=== PATIENT | male | born 1950 | race Caucasian/White ===

== ENCOUNTER → 2017-04-30 10:33 | Outpatient (CLI) | payer MEDICARE, SELFPAY ==
[2017-04-30 12:46] LABS: AST(SGOT) 20 U/L (15-37); Alanine Aminotransfer ALT/SGPT 33 U/L (16-61); Albumin, Serum 3.4 g/dL (3.2-5.0); Alkaline Phosphatase 154 U/L (45-117); Anion Gap 9 (5-15); BUN 34 mg/dL (7-18); BUN/Creat Ratio 23.8 RATIO (10-20); Bilirubin, Direct 0.15 mg/dL (0.00-0.30); Calcium,Total 9.2 mg/dL (8.5-10.1); Chloride 99 mmol/L (98-107); Cholesterol 171 mg/dL (200); Creatinine, Serum 1.43 mg/dL (0.70-1.30); EST Glomerular Filtration Rate 53 mL/min (>60); Est Glom Filt Rate - Afr Amer 64 mL/min (>60); Globulin 4.6 g/dL (2.2-4.2); Glucose 166 mg/dL (74-106); High Density Lipoprotein 31 mg/dL; Potassium 3.3 mmol/L (3.5-5.1); Sodium Level 136 mmol/L (136-145); Triglycerides 130 mg/dL; Very Low Density Lipoprotein 26 mg/dL (5-40)
[2017-04-30 13:09] LABS: Microalbumin,Random Urine 13.3 mg/L (NO RANGE EST.); Microalbumin:Creatinine Ratio 27.8 mg/g CRE (<30 mg/g CRE)
== END ==
PROVIDERS: Family Provider Family Medicine; PCP Family Medicine; Visit Provider Family Medicine
DX: E11.9 Type 2 diabetes mellitus without complications (principal)
CPT/HCPCS: 36415; 80048; 80061; 80076; 82043; 82570

== ENCOUNTER 2017-05-10 11:09 | Day surgery (SDC) | payer MEDICARE, SELFPAY ==
--- NOTE | 2017-05-10 | IMM_PTH ---
PATIENT: ASHLEY FONSECA LOC: [facility] U#:[id number] AGE/SX: 66/M ROOM: RE05/10/[address]: Dr. Erick Olson MD : 1950 BED: DIS: 05/10/2017 SPEC #: [id number] RECD: 05/11/17 11:00 STATUS: KADY REKaylan #: [id number] REBEKAH: 05/10/17 00:[address]: Erick Olson DEPT: IMMUNOHISTOCHEMISTRY RECD BY: Verónica Wiggins ENTERED: 05/11/17 11:00 SP TYPE: IMMUNO OTHR DR: Dr. Jelena Huddleston MD Tissues: A - Stomach, NOS Procedures: H Pylori (initial) PHYSICIAN & INSTITUTION [place] [address] SPECIMEN INFORMATION: Tissue Source: A ? Gastric biopsy Clinical Info: Dysphagia Specimen Number: [id number] CPT code: 74382 METHODOLOGY: Deparaffinized sections of prefer/formalin-fixed tissue or PAP/DQ stained slides are incubated with monoclonal/polyclonal antibodies/oligonucleotide probes. Localization is made via biotin free immunoperoxidase method. Appropriate controls are performed and reacted as expected. Results on target cell population are indicated in the following table: RESULTS: ANTIBODY / CLONE RESULT Block A H Pylori (polyclonal) negative These tests were developed and their performance characteristics determined by [facility]. They may not have been cleared or approved by the U.S. Food and Drug Administration. The FDA has determined that such clearance or approval is not necessary. INTERPRETATION: A. Gastric biopsy: Negative for Helicobacter pylori organisms. AM:kza 05/14/17
--- NOTE | 2017-05-10 | EGD_PTH ---
PATIENT: ASHLEY FONSECA LOC: EN U#:[id number] AGE/SX: 66/M ROOM: RE05/10/[address]: Dr. Erick Olson MD : 1950 BED: DIS: 05/10/2017 SPEC #: [id number] RECD: 05/10/17 15:02 STATUS: KADY BRANDON #: [id number] REBEKAH: 05/10/17 00:[address]: Erick Olson DEPT: SURGICAL PATHOLOGY RECD BY: Lemuel Bell ENTERED: 05/10/17 15:03 SP TYPE: EGD BIOPSY ROME DR: Dr. Jelena Huddleston MD Tissues: A - Gastric mucous membrane B - Esophageal mucous membrane Procedures: Surgery Specimen Level IV HEADER OPERATION: EGD PRE-OP DIAGNOSIS: Dysphagia TISSUE SUBMITTED: A ? Gastric biopsy, B ? Distal esophageal biopsy MICROSCOPIC DIAGNOSIS A. Gastric antrum, biopsy: Gastritis. B. Distal esophagus, biopsy: Rare strips of benign superficial squamous mucosa. AM:kaz 05/11/17 COMMENT A. The results of immunohistochemistry for Helicobacter pylori will be reported separately ([id number]). MICROSCOPIC DESCRIPTION Slides are reviewed. A. Sections show small collections and groups of plasma cells in the mucosa. Active inflammation is not present. These findings are consistent with mild to moderate chronic gastritis. GROSS DESCRIPTION A - Received in fixative is one container labeled with the patient's name and designated gastric biopsy. The specimen consists of one irregular fragment of light andrade soft tissue that measures 0.5 x 0.3 x 0.1 cm. The specimen is totally submitted in one cassette. B - Received in fixative is one container labeled with the patient's name and designated distal esophageal biopsy. The specimen consists of one irregular fragment of mucoid, light andrade soft tissue that measures 0.1 x 0.1 x 0.1 cm. The specimen is totally submitted in one cassette. / SJ:kaz 05/10/17 TC:3 CPT: 00019 x2
--- NOTE | 2017-05-10 08:22 | HP.PCM_ITS ---
History and Physical Date of Admission: 05/10/17 HISTORY AND PHYSICAL ? Josh Waterman 1950 ? REFERRING PHYSICIAN: ~~Erick Olson MD ? CHIEF COMPLAINT: ~~Follow Up ? HPI: The patient is a 66 year old male referred for endoscopy. ~Josh notes worsening dysphagia. ~Food will occasionally stick with swallowing. ? Josh is a patient I am following for anemia and suspected upper GI bleed, was recently admitted to [facility] where he was transfused. ~I performed upper endoscopy on 11/29/16, lower endoscopy was not performed at that time due to current medical status. ~The patient was found to have gastritis, esophagitis, and what appeared to be a healing gastric ulcer. ~Pathology demonstrated: gastritis and Wong's esophagus without dysplasia. ~Testing for H. Pylori was negative. ? ? ? PAST MEDICAL HISTORY PAST MEDICAL HISTORY Diagnosis Date ? Bilateral venous insufficiency 02/16/2014 ? CAD (coronary artery disease) 12/25/2013 ? Dr. Hopkins, Cardiology ? CHF (congestive heart failure) ([facility]) 12/25/2013 ? CKD (chronic kidney disease) stage 3, GFR 30-59 ml/min 12/25/2013 ? Dr. Chayito Woody, [facility] ? Dermatophytosis of nail 08/04/2011 ? DM neuro manif type II 08/04/2011 ? DM type 2 (diabetes mellitus, type 2) ([facility]) ? ? HTN (hypertension) ? ? Hyperlipidemia ? ? LV dysfunction 02/16/2014 ? AL (myocardial infarction) ([facility]) ? ? MRSA infection (methicillin-resistant Staphylococcus aureus) 08/12/2014 ? Neuropathy ([facility]) ? ? LAURA on CPAP ? ? Other acquired deformity of toe 08/04/2011 ? Other lymphedema 01/07/2014 ? Retinopathy ? ? S/P CABG x 2 ? ? Ulcer of lower limb, unspecified 01/07/2014 ? ? PAST SURGICAL HISTORY PAST SURGICAL HISTORY Procedure Laterality Date ? CABG (2) VEIN GRAFTS & ARTERIAL GRAFT(S ? 03/31/2011 ? COLONOSCOP W/ OR W/O [facility] SPEC ? 02/28/2013 ? Colonoscopy ? CORONARY STENT EA VESSEL ? ? EGD W/O [facility] SPECIMEN W/BX ? 11/29/2016 ? post GI bleed - gastritis, likely healing ulcer ? ? CURRENT MEDICATIONS ? Current Outpatient Prescriptions: carvedilol (COREG) 3.125 mg tablet Take 3.125 mg by mouth twice daily. clindamycin (CLEOCIN) 150 mg capsule Take two capsules to start, then take one capsule four times a day. isosorbide mononitrate ER (IMDUR) 30 mg 24 hr tablet Take 1 tablet by mouth once daily. metoprolol tartrate, short acting, (LOPRESSOR) 50 mg tablet Take 1 tablet by mouth twice daily. mupirocin (BACTROBAN) 2 % ointment Apply 1 application to affected area three times daily. Location: right thigh HYDROcodone-acetaminophen (NORCO) 5-325 mg per tablet Take 1 tablet by mouth every 6 hours as needed for Pain. Insulin Lispro, Human, (HUMALOG KWIKPEN) 100 unit/mL inpn Take 5 units with breakfast and 5 units with lunch. ~Take 32 units with dinner. ~Add sliding scale insulin 3 times daily with meals. insulin glargine (LANTUS SOLOSTAR) 100 unit/mL (3 mL) inpn SEVENTY (70) UNITS TWICE A DAY. Insulin Lispro, Human, (HUMALOG KWIKPEN) 100 unit/mL inpn Add sliding scale insulin 3 times a day with meals: ~150-200 add 1 [id number] add 2 -353 add 3 -488 add 4 [id number] add 5 -418 add 6 units nitroglycerin sublingual (NITROSTAT) 0.4 mg SL tablet Dissolve 1 tablet under the tongue every 5 minutes as needed. gabapentin (NEURONTIN) 600 mg tablet Take 1 tablet by mouth four times daily. potassium chloride (K-TAB) 10 mEq tablet Take 2 tablets by mouth twice daily. 1 tab po lancets (TRUEPLUS LANCETS) 33 gauge misc Use 4 times daily to check blood sugars Dx: E11.49 Insulin: yes COMPOUNDED PRESCRIPTION Oxygen at 2 L per nasal cannula. Hypoxia, ~Combined heart failure, Chronic pulmonary heart disease torsemide (DEMADEX) 100 mg tablet Take 1 tablet by mouth once daily. cholecalciferol (VITAMIN D3) 1,000 unit tab Take 1 tablet by mouth once daily. multivitamin tablet Take 1 tablet by mouth once daily. magnesium oxide 400 mg cap Take 1 capsule by mouth twice daily. spironolactone (ALDACTONE) 25 mg tablet Take 1 tablet by mouth once daily. DULoxetine (CYMBALTA) 60 mg capsule Take 1 capsule by mouth once daily. blood sugar diagnostic (ACCU-CHEK FABIAN) test strip Test 4 times daily. ~DX: 250.02 ~Insulin: Yes Insulin [place], Disposable, (PEN NEEDLE) 31 x 3/16 ndle Use with insulins as directed. ~250.60 DM neuro manif type II. ~Insulin: ~Yes. atorvastatin (LIPITOR) 80 mg tablet Take 1 tablet by mouth once daily. clopidogrel (PLAVIX) 75 mg tablet Take 1 tablet by mouth once daily. Ferrous Sulfate 325 mg (65 mg iron) tablet Take 1 tablet by mouth twice daily with meals. aspirin, enteric coated (ADULT LOW DOSE ASPIRIN) 81 mg EC tablet Take 81 mg by mouth once daily. docusate sodium (STOOL SOFTENER) 100 mg capsule Take 100 mg by mouth twice daily. ? No current facility-administered medications for this visit. ? ALLERGIES: Lisinopril ? PERSONAL HISTORY: SOCIAL HISTORY Social History ~~Marital status: ~~~~~~~~~~~~Spouse name: ~~~~~~~~~~~~~~~~~~ ~~Years of education: ~~~~~~~~~~~~~~~~Number of children: 5 ~~~~~~~~ ? 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 Social History Main Topics ~~Smoking status: Former Smoker ~~~~~~~~~~~~~~~~~~~~~~~~~~~~~~~~~~~~~~~~~~~~~~~~ ~~~~~~~~ ~~~~~Packs/day: 0.50 ~~~~~Years: 15.00 ~~ ~~~~~Start date: 05/25/1969 ~~~~~Quit date: 03/26/1984 ~~Smokeless status: Never Used ~~~~~~~~~~~~~~~~~~~ ~~Alcohol use: No ~~~~~~~~~ ~~Drug use: No ~~~~~~~~~ ~~Sexual activity: Yes ~~~~~~~~~~~~~~Partners with: Female ? ? FAMILY HISTORY: FAMILY HISTORY FAMILY HISTORY Problem Relation Age of Onset ? Diabetes Mother ? ? Diabetes Father ? ? Hypertension Father ? ? Stroke Father ? ? Stroke Mother ? ? Diabetes Brother ? ? GI Brother ? ? ? alcoholic cirrhosis ? ? ? There are no exam notes on file for this visit. ? ?? PHYSICAL EXAMINATION: ? General: ~The patient is 66 year old male, well nourished, well hydrated in no acute distress. ~The patient is oriented to time, place, and person. ? VITALS: Blood pressure 118/58, pulse 72, weight 105.2 kg (232 lb).~Body mass index is 35.28 kg/(m^2).~ ? HEENT: ~Normal cephalic, ataumatic, pupils are equally round, sclera are anicteric, mucous membranes are moist, oropharynx is clear. ~Neck has no masses , asymmetry or lymphadenopathy. ~Thyroid is unremarkable. ? Respiratory: ~Clear to auscultation and percussion. ~Normal respiratory excursion and pattern. ? Cardiac: ~Examination is regular rate and rhythm. ? Abdominal exam: ~Soft, nontender, ~with no palpable masses. ~No hepatosplenomegaly. ~No palpable hernias. ? Rectal exam: exam deferred ? Extremities: ~no clubbing, cyanosis or edema. ~No adenopathy. ? Other: ? LABORATORY VALUES: As Noted ? RADIOLOGIC STUDIES: ~As Noted ? Assessment ~ IMPRESSION: History of Wong's esophagitis, dysphagia, need to follow-up for peptic ulcer disease ? PLAN: ~I plan to perform upper~endoscopy. ~~We discussed the risks and benefits of the planned endoscopy. ~I have informed the patient that complications can occur including failure to complete the endoscopy and perforation. ~The patient had the opportunity to ask questions concerning the planned endoscopy. ~My staff has also explained the procedure to the patient in understandable terms and has given the patient printed material concerning the procedure. ~The patient freely consents to surgery. ? ? ? ~~~ ? Diagnoses: (K22.70, ~K20.9) Wong's esophagus with esophagitis ~(primary encounter diagnosis) (K29.70) Gastritis, presence of bleeding unspecified, unspecified chronicity, unspecified gastritis type ? A letter was sent to Dr. Jelena Huddleston MD~indicating the above finding for this patient. ?? Return to Clinic: The patient is instructed to follow-up with me after the testing has been completed. ? Erick Olson MD
[2017-05-10 11:24] VITALS: BP 125/69; PULSE 73; RESP 16; TEMP 36.4; O2SAT 98; BMI 35.2
[2017-05-10 11:42] LABS: Bedside Glucose 126 mg/dL (70-110)
[2017-05-10 13:04] VITALS: BP 125/69; BP 90/67; PULSE 77; RESP 16; TEMP 36.8; O2SAT 95
[2017-05-10 13:10] VITALS: BP 125/69; BP 84/70; PULSE 75; RESP 16; O2SAT 91
--- NOTE | 2017-05-10 13:11 | OP.PCM_ITS ---
Report of Operation Date of Procedure: 05/10/17 Pre-Operative Diagnosis: h/o gastric ulcer and Wong's esophagus Post-Operative Diagnosis: gastric nodule, short segement Wong's Surgery/Procedure Performed:: EGD with biopsy Specimen's removed: gastric, distal esophagus Description of Procedure: The patient was brought to the endoscopy suite. Sign in was performed verifying patient, site, planned procedure, critical nursing information, the patient was monitored with cardiac, pulse oximetric, and blood pressure monitoring devices. Monitored anesthetic care was provided for sedation. Following IV sedation and after the oropharynx was sprayed with Cetacaine spray , a video gastroscope was inserted in the oropharynx and advanced down the esophagus without difficulty. The scope was advanced through the stomach, through the pylorus through the duodenum to the proximal jejunum. the jejunum and the duodenum were unremarkable. In the antral region of the stomach, there were no signs of ulceration but there were some nodules present in the antral region. Biopsies were obtained. This area for H. pylori and one of the nodules was biopsied and sent to pathology. The remainder of the stomach and the fundic portion on retroflexion was unremarkable. The distal esophagus again demonstrated irritation felt to be consistent with short segment Wong' s esophagitis. A biopsy was taken. The GE junction. The remainder of the esophagus was unremarkable. The patient tolerated the procedure well and was brought to recovery in stable condition
[2017-05-10 13:15] VITALS: BP 125/69; BP 97/68; PULSE 74; RESP 16; O2SAT 93
[2017-05-10 13:20] VITALS: BP 105/64; BP 125/69; PULSE 74; RESP 16; TEMP 36.8; O2SAT 93
[2017-05-10 13:42] VITALS: BP 125/69
== END 2017-05-10 13:49 | disposition home or self-care (01) ==
LOC: EN 11:11 → AC 11:11
PROVIDERS: Family Provider Family Medicine; PCP Family Medicine; Visit Provider Surgery
PROC: 0DJ08ZZ Inspection of Upper Intestinal Tract, Via Natural or Artificial Opening Endoscopic (ICD-10-PCS; CPT 43235; principal; 2017-05-10 12:45)
DX: K22.70 Barrett's esophagus without dysplasia (principal); K20.9 Esophagitis, unspecified; K29.70 Gastritis, unspecified, without bleeding; D64.9 Anemia, unspecified; Z87.19 Personal history of other diseases of the digestive system; I87.2 Venous insufficiency (chronic) (peripheral); I25.10 Atherosclerotic heart disease of native coronary artery without angina pectoris; I13.0 Hypertensive heart and chronic kidney disease with heart failure and stage 1 through stage 4 chronic kidney disease, or unspecified chronic kidney disease; E11.22 Type 2 diabetes mellitus with diabetic chronic kidney disease; N18.3 Chronic kidney disease, stage 3 (moderate); I50.9 Heart failure, unspecified; I25.2 Old myocardial infarction; E11.40 Type 2 diabetes mellitus with diabetic neuropathy, unspecified; E78.00 Pure hypercholesterolemia, unspecified; G47.33 Obstructive sleep apnea (adult) (pediatric); M20.5X9 Other deformities of toe(s) (acquired), unspecified foot; I89.0 Lymphedema, not elsewhere classified; E11.319 Type 2 diabetes mellitus with unspecified diabetic retinopathy without macular edema; Z87.2 Personal history of diseases of the skin and subcutaneous tissue; F41.9 Anxiety disorder, unspecified; F32.9 Major depressive disorder, single episode, unspecified; K04.7 Periapical abscess without sinus; Z86.14 Personal history of Methicillin resistant Staphylococcus aureus infection; Z95.1 Presence of aortocoronary bypass graft; Z87.891 Personal history of nicotine dependence; Z79.4 Long term (current) use of insulin; Z79.02 Long term (current) use of antithrombotics/antiplatelets; Z79.82 Long term (current) use of aspirin; Z79.899 Other long term (current) drug therapy
CPT/HCPCS: 43239; 82962; 88305; 88342; J7120

== ENCOUNTER → 2017-08-02 12:32 | Outpatient (CLI) | payer MEDICARE, SELFPAY ==
--- NOTE | 2017-08-02 12:41 | PCM.CR.HP2 ---
CR - History & Physical - General Arrival date:: 08/02/17 Arrival time:: 12:41 Date of Referral:: 08/02/17 Date of CR Evaluation:: 08/02/17 Referring Physician: Dr. Patrice Sanders Primary Diagnosis: PCI with KATHY - History of Present Cardiac Event Onset Date: Enter Onset Date of cardiac illnesses in Comment field below Current stable Angina Pectoris:: No Acute Myocardial Infarction within 12 months:: Yes Coronary Artery Bypass Graft:: Yes - 2011 Heart valve replacement or repair:: No PTCA or coronary stenting:: Yes - 2011 and 11/02/16 Heart or Heart-Lung Transplant:: No Heart Failure EF <35%:: No Interventions with present event:: PCI with KATHY Were there any complications?: coded in ED before PCI - Medications Home Medications: Ambulatory Orders Medication Instructions Recorded Atorvastatin Calcium [Lipitor] 80 mg PO QHS 01/15/16 Cholecalciferol (VIT D3) [Vitamin 1,000 unit PO DAILY 01/15/16 D3] Magnesium Oxide 400 mg PO BID 01/15/16 Multivitamins,Therapeutic 1 tab PO DAILY 01/15/16 [Multivitamin] Insulin Glargine,Hum.rec.anlog 55 unit SQ BID 11/02/16 [Lantus] Nitroglycerin [Nitrostat] 0.4 mg SUBLINGUAL Q5M PRN 11/02/16 Aspirin [Aspirin, Baby] 81 mg PO DAILY@0800 tab.chew 11/16/16 Duloxetine Hcl [Cymbalta] 60 mg PO DAILY cap 11/16/16 Acetaminophen [Tylenol] 1,000 mg PO Q8H PRN PRN tab 11/22/16 Carvedilol [Coreg (Beta Matthew)] 3.125 mg PO BID #60 tab 11/22/16 Pantoprazole Sodium [Protonix] 40 mg PO BID #60 tab 11/22/16 Gabapentin [Neurontin] 600 mg PO 4X/DAY 11/26/16 Humalog See Protocol SC 4X/DAY 11/26/16 Clopidogrel Bisulfate [Plavix] 75 mg PO DAILY #30 tab 11/30/16 traZODone [Desyrel] 50 mg PO QHS #30 tab 11/30/16 albuterol sulfate HFA 90 2 puff INHALATION Q4H g 03/01/17 mcg/actuation aerosol inhaler Iron 65 mg PO BID 03/14/17 furosemide 40 mg tablet 40 mg PO BID tab 07/23/17 potassium chloride ER 20 mEq 20 meq PO BID tab 07/23/17 tablet,extended release(part/cryst) - Allergies Allergies/Adverse Reactions: Allergies lisinopril Allergy (Verified 07/23/17 12:50) Other COUGH - Sleep Disorder Evaluation Hx of Sleep Apnea: Yes Do you snore loudly (louder than talking or can be heard through closed doors)?: No Do you often feel tired/ fatigued/ sleepy during daytime?: Yes Has anyone observed you stop breathing during sleep?: No - on Bipap at night History of Hypertension (for STOP score): Yes STOP Results: Positive Advanced Directives - Advanced Directives Power of Environmental Health Officer: No Living Will: No Advance Directives Information Provided: Yes Advance Directives on File: No DNR Order?:: No - MOLST See MOLST form: No Past Medical History - Past Medical Illness Medical History: Past Medical History (Last Reviewed 07/23/17 @ 12:50 by Stephania Mike) Chronic diastolic (congestive) heart failure (Chronic) I50.32 Atherosclerosis of coronary artery of [place] heart without angina pectoris (Chronic) I25.10 FLU-SDG-Hvxa RCA with 3.0 x 16 Promus 11/02/16 CABG x 2 FUENTES-LAD, SVG-OM 2011 Hypoxemia (Acute) R09.02 Abnormal pulmonary function test (Acute) R94.2 ZHAO (dyspnea on exertion) (Chronic) R06.09 Chronic kidney disease (Chronic) N18.9 PAOD (peripheral arterial occlusive disease) (Chronic) I77.9 Venous insufficiency (Chronic) Depression (Chronic) F32.9 Neuropathic pain (Chronic) Obstructive sleep apnea (Chronic) G47.33 Dyspnea (Acute) R06.00 Anemia (Acute) D64.9 Ventricular tachycardia (Acute) I47.2 DM (diabetes mellitus), type 2, uncontrolled (Chronic) E11.65 Bradycardia (Acute) R00.1 Metabolic acidosis (Acute) E87.2 Cardiogenic shock (Acute) R57.0 STEMI (ST elevation myocardial infarction) (Chronic) Cardiac arrest (Acute) I46.9 Hypokalemia (Acute) E87.6 Hyponatremia (Acute) E87.1 LIBRADO (acute kidney injury) (Acute) N17.9 Uncontrolled type 2 DM with hyperosmolar nonketotic hyperglycemia (Acute) E11.00 Diabetes mellitus (Chronic) E11.9 Insulin-dependent Chronic kidney disease, stage 3 (Chronic) Diabetic nephropathy Iron deficiency anemia (Chronic) D50.9 Anemia of chronic disease (Chronic) D63.8 Hyperlipidemia (Chronic) E78.5 Hypertension (Chronic) I10 Open wound of knee, leg, and ankle, complicated (Chronic) S81.009A, S81.809A, S91.009A Lymphedema (Chronic) I89.0 Bilateral Venous insufficiency of both lower extremities (Chronic) I87.2 Arthritis M19.90 Chronic congestive heart failure I50.9 Diabetes E11.9 Hypertension I10 Obstructive sleep apnea G47.33 PAD (peripheral artery disease) I73.9 Acute on chronic systolic (congestive) heart failure (Inactive) I50.23 CHF (congestive heart failure) (Inactive) I50.9 Ejection fraction 45% as of December 2014 PAD (peripheral artery disease) (Inactive) I73.9 - Past Surgical History Surgical History: Past Surgical History (Last Reviewed 07/23/17 @ 12:50 by Stephania Mike) History of coronary artery stent placement (Chronic) Onset Date: ~11/02/16 Z95.5 [id number]-KWA-[id number] RCA with 3.0 x 16 Promus 11/02/16 H/O coronary artery bypass surgery (Chronic) Onset Date: ~2011 Z95.1 CABG x 2 FUENTES-LAD, SVG-OM 2011 Coronary bypass graft mechanical complication T82.218A Surgical History: angioplasty, coronary bypass surgery - x 2., - - CABG x 2 2011, PCI x 2 following. - Family History Summary Family History: Family History (Last Reviewed 07/23/17 @ 12:50 by Stephania Mike) Sister CVA (cerebral vascular accident) Father Heart disease Hypertension Diabetes Social History - Smoking History Smoking Status: Former smoker Hx Smoking Cessation Date: quit 35 years ago Hx Tobacco Use: No Hx Smoking Exposure: No - Alcohol Use Alcohol Usage: No - Substance Abuse Hx Substance Use: No - Occupation Occupation (List type of work in comments):: Retired - Hobbies, Recreation, Social Activities Hobbies: Other - fishing, Follows sports Recreational Activities: I am able to engage in all my recreational activities Social Environment - Status Marital Status: - Current Living Arrangements Living Environment:: Spouse - Children How many children do you have?: 5 Do any of your children live nearby?: Yes - Safety Do you feel safe in your surroundings?: Yes - Assistance Do you need any assistance at home?: no Review of Systems - Review of Systems Hints: Right click = Denies (Slash). Left click = Reports ([place]) Review of Present Symptoms: Reports: Shortness of Breath with Exertion - some SOB with ambulation., PVD, Dizziness/Lightheadedness - occas lightheadedness., Fatigue - occas, Heart Arrhythmia/Irregularities - none now since Nov 09, Appetite - Normal, Appetite - Special Diet, Sleep - Normal. Denies: Shortness of Breath at Rest, Operative Discomfort, Angina, Wound Healing, Sexual Changes - Pain Is Patient Pain Free?: No Pain Location: lower extremity - peripheral extremities Pain Level: 2/10 Previous experience dealing with pain?: took Ibuprofen in past, not now. Takes Acetaminop Risk Factor Assessment - Chief Complaint Chief Complaint: Get self built up. - Vital Signs Respiratory Rate: 20 Pulse Ox: 96 - Pulse Pulse Rate: 73 Pulse Rhythm: Regular - Hypertension How long have you been treated?: many years. On medication(s)?: yes Blood Pressure Sitting - Right Arm: 90/50 - Stress Stress: Recent, Long-standing, Work-related, Home/Family - Diabetes Diabetic History: Type II, Insulin Dependent Nutrition Referral for Diabetes: Yes - Obesity Height: 1.73 m Weight:: 104.326 kg Weight in Pounds: 230.0 lbs Weight Source: Standing Scale Body Mass Index (BMI): 34.9 Desired Body Weight: 212 Realistic Weight Goal (Loss of 1-2 lbs/week): 206 Nutritional Referral for Obesity: Yes - Physical Inactivity Physical Inactivity: Reg Exercise 30 min/day - Risk Stratification Risk Guidelines: Lowest Risk: Risk Factor for Smoking, Moderate Risk: Risk Factor for Dyslipidemia, Risk Factor for Hypertension, Highest Risk: Risk Factor for Diabetes, Risk Factor for Obesity, Risk Factor for Sedentary Lifestyle, Risk Factor for Depression - For Smoking Smoking Risk Guidelines: Smoking Low Risk: None or quit greater than 6 months ago. Smoking Moderate Risk: Smoker or quit 6 months or less ago. Smoking High Risk: Smoker - For Dyslipidemia Dyslipidemia Risk Guidelines: Low Risk: Moderate Risk: High Risk: 15-25% fat 25.1-29% fat >/= 30% fat. <7% sat fat 7-9% sat fat >9% sat fat. <150 mg chol 150-299 mg chol >/= 300 mg chol. LDL <100 LDL 100-129 LDL >/= 130. Chol/HDL ratio <5.0 Chol/HDL ratio 5.0-6.0 Chol/HDL ratio >6.0. Triglycerides <100 Triglycerides 100-149 Triglycerides >/= 150 - For Diabetes Mellitus Diabetes Risk Guidelines: Diabetes Low Risk: HgA1c <6.5% and/or FBG <120. Diabetes Moderate Risk: HgA1c 6.6-7.9% and/or FBG 120-180. Diabetes High Risk: HgA1c >/= 8% and/or FBG >180 - For Obesity/Overweight Obesity/Overweight Risk Guidelines: Obesity Low Risk: BMI <25.0. Obesity Moderate Risk: BMI 25-29.9. Obesity High Risk: BMI >/= 30.0 - For Hypertension Hypertension Risk Guidelines: Hypertension Low Risk: Systolic <120 and Diastolic <80. Hypertension Moderate Risk: Systolic 120-139 and Diastolic 80-89. Hypertension High Risk: Systolic >/= 140 and Diastolic >/= 90 - For Sedentary Lifestyle Sedentary Lifestyle Risk Guidelines: Sedentary Lifestyle Low Risk: >/= 1,500 kcal/week. Sedentary Lifestyle Moderate Risk: 700-1,499 kcal/week. Sedentary Lifestyle High Risk: < 700 kcal/week - For Depression Depression Risk Guidelines: Depression Low Risk: Not clinically depressed. Depression Moderate Risk: Mildly depressed. Depression High Risk: Clinically depressed - Family History Family History: Family History (Last Reviewed 07/23/17 @ 12:50 by Stephania Mike) Sister CVA (cerebral vascular accident) Father Heart disease Hypertension Diabetes Motivation - Motivation to Participate On a scale of 1 to 10, how prepared are you to commit to attending program?: 10 What do you see as barriers to successfully being able to complete the program?: none What do you see as the benefits of succesfully completing the program? In other words, what do you hope to get out of participating in the program?: weight loss and endurance Are there issues you are dealing with that will interfere with completing the program?: no Do you have a spouse or signficant other, family or friends who will help support you to complete the program?: yes
--- NOTE | 2017-08-02 12:49 | PCM.CR.ITP ---
General Information - General Information Admitting Diagnosis: PCI with KATHY - Education/Goals Barriers to Learning: None Individual Counseling: Initial Assessment: Abnormal Cholesterol Levels, Overweight/Obesity, Diabetes, Low HDL <40/Males or <50/Females, Sedentary Lifestyle, Stress, Family History of Heart Disease (under 65 years) Cardiac Rehabilitation Goals: 1. Maintain the individual as the primary focus of care. 2. To improve the patient's quality of life. 3. Identification of cardiac risk factors and provide cardiac risk factor management. 4. Enhance the psychosocial status of the patient. 5. Reconditioning enough to allow the patient to resume customary activities. 6. Control symptoms of cardiac disease Scale for measuring improvement of personal goals: Enter appropriate number in Comments. 2 = Unchanged. 3 = Slightly Better. 4 = Moderate Improvement. 5 = Met my Goal Personal Goals: Initial Assessment: Improve management of stress and emotions, Improve energy level, Participate in home exercise program, Get back to work, or to resume activities faster, Improve knowledge of cardiac disease, Improve muscle strength and endurance, Improve diet and eating habits (eat healthier), Control risk factors (learn risk factor modification) Exercise - Initial Assessment - Visit Date of Eval: 08/02/17 - Stages of Change Stages of Change:: Pre-contemplation, Action - Exercise Prescription Mode:: Treadmill, Biodyne, Rower, Airdyne, NuStep - Intervention Home Exercise/Activity Goal:: Moderate Exercise 30 min/day x 5 days/wk - Education Goals:: Warm-up, RPE DANICA Scale, S/S, Safe Exercise, Self-Monitoring - Exercise Program Goals Exercise Program Goals: Aerobic Activity >30 min Nutrition - Initial Assessment - Program Goals Nutrition Program Goals: LDL <70. Total Cholesterol <200. HDL >45. Triglycerides <150. HgbA1C <7%. BMI <25 - Visit Date of Assessment:: 08/02/17 - Stages of Change Stages of Change:: Pre-contemplation, Action - Diabetes Diabetes:: Yes Insulin: Yes Do you monitor your blood sugar at home?: Yes - Weight Management Height: 1.73 m Weight:: 104.326 kg Weight Goal (kg):: 95.254 kg Body Fat %:: 34.9 Goal % Body Fat:: 24 - Intervention Referral to dietitian:: Yes Referral to Diabetic Clinic:: Yes Will attend diet classes:: Yes - Education Gave educational materials for:: Signs & symptoms of hypoglycemia, Signs & symptoms of hyperglycemia, Relate diabetes to coronary artery disease, Healthy eating Tobacco - Initial Assessment - Program Goals Tobacco Program Goals: Complete smoking cessation. Attend education classes. Improve Knowledge Test score - Stage of Change Stages of Change:: Maintenance - Learning Barriers Learning Barriers: Ready to Learn Total Score:: 14 - Family Support Do you have family support?: Yes - Tobacco Use Tobacco Use: Non-smoker Do you use smokeless tobacco?: No - Intervention Smoking Cessation Referral:: No Individual Education/Counseling:: No Education Schedule Given:: Yes - Education Gave educational material for:: Tobacco triggers, Coronary artery disease, Risk factors, Sexuality, Medical compliance, Cardiac A&P, Angina signs & symptoms Psychosocial - Initial Assess - Target Goals Target Goals: Assess presence or absence of depression. Using a valid screening tool, maximizes coping skills. Positive support system - Stages of Change Stages of Change:: Action - Psychosocial Test Tool Used:: HANDS Depression Questionnaire Self-reported stress:: yes Tests Completed: SF - 36 survey completed Total Mood Screening Score:: 21 Self-Efficacy Score:: 6 - Intervention PS - Interventions: Yes Referral to Mental Health, Yes Referral to Physician, Yes Attend Stress Management Classes, Yes Uses Stress Management Skills, No Referral to [facility] Case Management - Education Gave educational materials for:: Coping techniques, Signs & symptoms of depression, Stress management, Relaxation techniques - Patient/Program Goal Preventative Medication(s):: Aspirin, ASHIA inhibitor, Clopidogrel, Beta james, Statin/lipid - Assistive Devices Assistive Devices:: Cane Fall Risk Assessed:: Yes Patient Health Questionnaire Initial Assessment 1. Little interest or pleasure in doing things: Not at all 2. Feeling down, depressed, or hopeless: Nearly every day 3. Trouble falling or staying asleep, or sleeping too much: More than half the days 4. Feeling tired or having little energy: More than half the days 5. Poor appetite or overeating: Nearly every day 6. Feeling bad about yourself -- or that you are a failure or have let yourself or your family down: Nearly every day 7. Trouble concentrating on things, such as reading the newspaper or watching television: Nearly every day 8. Moving or speaking so slowly that other people could have noticed. Or the opposite - being so fidgety or restless that you have been moving around a lot more than usual: Nearly every day 9. Thoughts that you would be better off , or of hurting yourself in some way: More than half the days How difficult have these problems made it for you to do your work, take care of things at home, or get along with other people?: Somewhat difficult Total Score: 21 FLAQUITA-Q SV Test - Statements CAD is a disease of the arteries in the heart: I Don't Know Examples of risk factors for heart disease: True Angina is chest pain or discomfort: True The benefits of resistance training include: True Eating more meat and dairy products: I Don't Know Anti-platelet medications such as aspirin are important: True The only effective way to manage stress: True An exercise warm-up slowly increases heart rate: True Prepared, processed foods usually have high sodium: True Depression is common after a heart attack: True The statin medications lower cholesterol: True To control blood pressure, lower the amount of sodium: True If someone gets chest discomfort during walking: I Don't Know Transfats are partially hydrogenated vegetable oils: True Sleep apnea that is not treated increases the risk: False To control cholesterol, one should become a vegetarian: False Someone knows if he/she is exercising at the right level: I Don't Know Diabetes cannot be prevented with exercise & health eating: True Stress is a large risk for heart attack: True A diet that can help lower blood pressure is rich in: True - Total Score Total Correct Responses: 14 Self-Efficacy Initial Assessment We would like to know how confident you are in doing certain activities. Please select your confidence level for:: Select your confidence level for the following using the scale 1-10 where 1 is not at all confident and 10 is totally confident. Your score is the average of all 6 responses. Fatigue: How confident are you that you can keep the fatigue caused by your disease from interfering with the things you want to do? Select Number: 6 Physical Discomfort or Pain: How confident are you that you can keep the physical discomfort or pain of your disease from interfering with the things you want to do? Select Number: 4 Emotional Distress: How confident are you that you can keep the emotional distress caused by your disease from interfering with the things you want to do? Select Number: 5 Other Symptoms or Health Problems: How confident are you that you can keep other symptoms or health problems from interfering with the things you want to do? Select Number: 4 Different Tasks and Activities: How confident are you that you can do the different tasks and activities needed to manage your health condition so as to reduce your need to see a doctor? Select Number: 8 Medication: How confident are you that you can do things other than just taking medication to reduce how much your illness affects your everyday life? Select Number: 7 Total Score:: 5 Nutrition Survey - Nutrition Survey Instructions Scoring Instructions: Scoring is as follows: Yes = 1 points. No = 0 point. Patient score that is >/=12 is considered to be at potential nutritional risk and could benefit from a referral to a registered dietitian. - Nutrition Survey Initial Have you lost >10 lbs over the past 2 months without trying?: No Are you following a special diet at home for diabetes, low fat, or low salt?: Yes Are you interested in meeting with a dietitian for help understanding your diet?: Yes Do you eat less than 3 meals a day?: Yes Do you eat fatty meats (alvarez, sausage, ribs, etc), fried foods, desserts, large amounts of salad dressings, margarine, butter, or cheese most days?: No Do you have food allergies? [Enter types in comment field]: No Do you eat in restaurants more than 3 times a week?: No Do you season food with salt, seasoning salt, or garlic salt?: No
--- NOTE | 2017-08-02 12:52 | CR.HP_ITS ---
CR - History & Physical - General Arrival date:: 08/02/17 Arrival time:: 12:41 Date of Referral:: 08/02/17 Date of CR Evaluation:: 08/02/17 Referring Physician: Dr. Patrice Sanders Primary Diagnosis: PCI with KATHY - History of Present Cardiac Event Onset Date: Enter Onset Date of cardiac illnesses in Comment field below Current stable Angina Pectoris:: No Acute Myocardial Infarction within 12 months:: Yes Coronary Artery Bypass Graft:: Yes - 2011 Heart valve replacement or repair:: No PTCA or coronary stenting:: Yes - 2011 and 11/02/16 Heart or Heart-Lung Transplant:: No Heart Failure EF <35%:: No Interventions with present event:: PCI with KATHY Were there any complications?: coded in ED before PCI - Medications Home Medications: Ambulatory Orders Medication Instructions Recorded Atorvastatin Calcium [Lipitor] 80 mg PO QHS 01/15/16 Cholecalciferol (VIT D3) [Vitamin 1,000 unit PO DAILY 01/15/16 D3] Magnesium Oxide 400 mg PO BID 01/15/16 Multivitamins,Therapeutic 1 tab PO DAILY 01/15/16 [Multivitamin] Insulin Glargine,Hum.rec.anlog 55 unit SQ BID 11/02/16 [Lantus] Nitroglycerin [Nitrostat] 0.4 mg SUBLINGUAL Q5M PRN 11/02/16 Aspirin [Aspirin, Baby] 81 mg PO DAILY@0800 tab.chew 11/16/16 Duloxetine Hcl [Cymbalta] 60 mg PO DAILY cap 11/16/16 Acetaminophen [Tylenol] 1,000 mg PO Q8H PRN PRN tab 11/22/16 Carvedilol [Coreg (Beta Matthew)] 3.125 mg PO BID #60 tab 11/22/16 Pantoprazole Sodium [Protonix] 40 mg PO BID #60 tab 11/22/16 Gabapentin [Neurontin] 600 mg PO 4X/DAY 11/26/16 Humalog See Protocol SC 4X/DAY 11/26/16 Clopidogrel Bisulfate [Plavix] 75 mg PO DAILY #30 tab 11/30/16 traZODone [Desyrel] 50 mg PO QHS #30 tab 11/30/16 albuterol sulfate HFA 90 2 puff INHALATION Q4H g 03/01/17 mcg/actuation aerosol inhaler Iron 65 mg PO BID 03/14/17 furosemide 40 mg tablet 40 mg PO BID tab 07/23/17 potassium chloride ER 20 mEq 20 meq PO BID tab 07/23/17 tablet,extended release(part/cryst) - Allergies Allergies/Adverse Reactions: Allergies lisinopril Allergy (Verified 07/23/17 12:50) Other COUGH - Sleep Disorder Evaluation Hx of Sleep Apnea: Yes Do you snore loudly (louder than talking or can be heard through closed doors)? : No Do you often feel tired/ fatigued/ sleepy during daytime?: Yes Has anyone observed you stop breathing during sleep?: No - on Bipap at night History of Hypertension (for STOP score): Yes STOP Results: Positive Advanced Directives - Advanced Directives Power of Chorus Dancer: No Living Will: No Advance Directives Information Provided: Yes Advance Directives on File: No DNR Order?:: No - MOLST See MOLST form: No Past Medical History - Past Medical Illness Medical History: Past Medical History (Last Reviewed 07/23/17 @ 12:50 by Stephania Mike) Chronic diastolic (congestive) heart failure (Chronic) I50.32 Atherosclerosis of coronary artery of [place] heart without angina pectoris ( Chronic) I25.10 [id number]-[id number] RCA with 3.0 x 16 Promus 11/02/16 CABG x 2 FUENTES-LAD, SVG-OM 2011 Hypoxemia (Acute) R09.02 Abnormal pulmonary function test (Acute) R94.2 ZHAO (dyspnea on exertion) (Chronic) R06.09 Chronic kidney disease (Chronic) N18.9 PAOD (peripheral arterial occlusive disease) (Chronic) I77.9 Venous insufficiency (Chronic) Depression (Chronic) F32.9 Neuropathic pain (Chronic) Obstructive sleep apnea (Chronic) G47.33 Dyspnea (Acute) R06.00 Anemia (Acute) D64.9 Ventricular tachycardia (Acute) I47.2 DM (diabetes mellitus), type 2, uncontrolled (Chronic) E11.65 Bradycardia (Acute) R00.1 Metabolic acidosis (Acute) E87.2 Cardiogenic shock (Acute) R57.0 STEMI (ST elevation myocardial infarction) (Chronic) Cardiac arrest (Acute) I46.9 Hypokalemia (Acute) E87.6 Hyponatremia (Acute) E87.1 LIBRADO (acute kidney injury) (Acute) N17.9 Uncontrolled type 2 DM with hyperosmolar nonketotic hyperglycemia (Acute) E11.00 Diabetes mellitus (Chronic) E11.9 Insulin-dependent Chronic kidney disease, stage 3 (Chronic) Diabetic nephropathy Iron deficiency anemia (Chronic) D50.9 Anemia of chronic disease (Chronic) D63.8 Hyperlipidemia (Chronic) E78.5 Hypertension (Chronic) I10 Open wound of knee, leg, and ankle, complicated (Chronic) S81.009A, S81.809A, S91.009A Lymphedema (Chronic) I89.0 Bilateral Venous insufficiency of both lower extremities (Chronic) I87.2 Arthritis M19.90 Chronic congestive heart failure I50.9 Diabetes E11.9 Hypertension I10 Obstructive sleep apnea G47.33 PAD (peripheral artery disease) I73.9 Acute on chronic systolic (congestive) heart failure (Inactive) I50.23 CHF (congestive heart failure) (Inactive) I50.9 Ejection fraction 45% as of December 2014 PAD (peripheral artery disease) (Inactive) I73.9 - Past Surgical History Surgical History: Past Surgical History (Last Reviewed 07/23/17 @ 12:50 by Stephania Mike) History of coronary artery stent placement (Chronic) Onset Date: ~11/02/16 Z95.5 [id number]-XCE-[id number] RCA with 3.0 x 16 Promus 11/02/16 H/O coronary artery bypass surgery (Chronic) Onset Date: ~2011 Z95.1 CABG x 2 FUENTES-LAD, SVG-OM 2011 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 - Family History Summary Family History: Family History (Last Reviewed 07/23/17 @ 12:50 by Stephania Mike) Sister CVA (cerebral vascular accident) Father Heart disease Hypertension Diabetes Social History - Smoking History Smoking Status: Former smoker Hx Smoking Cessation Date: quit 35 years ago Hx Tobacco Use: No Hx Smoking Exposure: No - Alcohol Use Alcohol Usage: No - Substance Abuse Hx Substance Use: No - Occupation Occupation (List type of work in comments):: Retired - Hobbies, Recreation, Social Activities Hobbies: Other - fishing, Follows sports Recreational Activities: I am able to engage in all my recreational activities Social Environment - Status Marital Status: - Current Living Arrangements Living Environment:: Spouse - Children How many children do you have?: 5 Do any of your children live nearby?: Yes - Safety Do you feel safe in your surroundings?: Yes - Assistance Do you need any assistance at home?: no Review of Systems - Review of Systems Hints: Right click = Denies (Slash). Left click = Reports ([place]) Review of Present Symptoms: Reports: Shortness of Breath with Exertion - some SOB with ambulation., PVD, Dizziness/Lightheadedness - occas lightheadedness., Fatigue - occas, Heart Arrhythmia/Irregularities - none now since Nov 09, Appetite - Normal, Appetite - Special Diet, Sleep - Normal. Denies: Shortness of Breath at Rest, Operative Discomfort, Angina, Wound Healing, Sexual Changes - Pain Is Patient Pain Free?: No Pain Location: lower extremity - peripheral extremities Pain Level: 2/10 Previous experience dealing with pain?: took Ibuprofen in past, not now. Takes Acetaminop Risk Factor Assessment - Chief Complaint Chief Complaint: Get self built up. - Vital Signs Respiratory Rate: 20 Pulse Ox: 96 - Pulse Pulse Rate: 73 Pulse Rhythm: Regular - Hypertension How long have you been treated?: many years. On medication(s)?: yes Blood Pressure Sitting - Right Arm: 90/50 - Stress Stress: Recent, Long-standing, Work-related, Home/Family - Diabetes Diabetic History: Type II, Insulin Dependent Nutrition Referral for Diabetes: Yes - Obesity Height: 1.73 m Weight:: 104.326 kg Weight in Pounds: 230.0 lbs Weight Source: Standing Scale Body Mass Index (BMI): 34.9 Desired Body Weight: 212 Realistic Weight Goal (Loss of 1-2 lbs/week): 206 Nutritional Referral for Obesity: Yes - Physical Inactivity Physical Inactivity: Reg Exercise 30 min/day - Risk Stratification Risk Guidelines: Lowest Risk: Risk Factor for Smoking, Moderate Risk: Risk Factor for Dyslipidemia, Risk Factor for Hypertension, Highest Risk: Risk Factor for Diabetes, Risk Factor for Obesity, Risk Factor for Sedentary Lifestyle, Risk Factor for Depression - For Smoking Smoking Risk Guidelines: Smoking Low Risk: None or quit greater than 6 months ago. Smoking Moderate Risk: Smoker or quit 6 months or less ago. Smoking High Risk: Smoker - For Dyslipidemia Dyslipidemia Risk Guidelines: Low Risk: Moderate Risk: High Risk: 15-25% fat 25.1-29% fat >/= 30% fat. <7% sat fat 7-9% sat fat >9% sat fat. <150 mg chol 150-299 mg chol >/= 300 mg chol. LDL <100 LDL 100-129 LDL >/= 130. Chol/HDL ratio <5.0 Chol/HDL ratio 5.0-6.0 Chol/HDL ratio >6.0. Triglycerides <100 Triglycerides 100-149 Triglycerides >/= 150 - For Diabetes Mellitus Diabetes Risk Guidelines: Diabetes Low Risk: HgA1c <6.5% and/or FBG <120. Diabetes Moderate Risk: HgA1c 6.6-7.9% and/or FBG 120-180. Diabetes High Risk: HgA1c >/= 8% and/or FBG >180 - For Obesity/Overweight Obesity/Overweight Risk Guidelines: Obesity Low Risk: BMI <25.0. Obesity Moderate Risk: BMI 25-29.9. Obesity High Risk: BMI >/= 30.0 - For Hypertension Hypertension Risk Guidelines: Hypertension Low Risk: Systolic <120 and Diastolic <80. Hypertension Moderate Risk: Systolic 120-139 and Diastolic 80-89. Hypertension High Risk: Systolic >/= 140 and Diastolic >/= 90 - For Sedentary Lifestyle Sedentary Lifestyle Risk Guidelines: Sedentary Lifestyle Low Risk: >/= 1 ,500 kcal/week. Sedentary Lifestyle Moderate Risk: 700-1,499 kcal/week. Sedentary Lifestyle High Risk: < 700 kcal/week - For Depression Depression Risk Guidelines: Depression Low Risk: Not clinically depressed. Depression Moderate Risk: Mildly depressed. Depression High Risk: Clinically depressed - Family History Family History: Family History (Last Reviewed 07/23/17 @ 12:50 by Stehpania Mike) Sister CVA (cerebral vascular accident) Father Heart disease Hypertension Diabetes Motivation - Motivation to Participate On a scale of 1 to 10, how prepared are you to commit to attending program?: 10 What do you see as barriers to successfully being able to complete the program? : none What do you see as the benefits of succesfully completing the program? In other words, what do you hope to get out of participating in the program?: weight loss and endurance Are there issues you are dealing with that will interfere with completing the program?: no Do you have a spouse or signficant other, family or friends who will help support you to complete the program?: yes
[2017-08-02 13:50] VITALS: BP 90/50; PULSE 73; RESP 20; O2SAT 96; BMI 34.9
== END ==
PROVIDERS: Family Provider Family Medicine; PCP Family Medicine; Visit Provider Internal Medicine Cardiovascular Disease
DX: I25.10 Atherosclerotic heart disease of native coronary artery without angina pectoris (principal); Z95.1 Presence of aortocoronary bypass graft

== ENCOUNTER 2017-08-13 14:11 | Outpatient (RCR) | payer MEDICARE, SELFPAY | END 2017-08-23 23:59 | LOC: DC 14:11 | PROVIDERS: Family Provider Family Medicine; PCP Family Medicine; Visit Provider Internal Medicine Cardiovascular Disease | DX: E11.22 Type 2 diabetes mellitus with diabetic chronic kidney disease (principal); I25.10 Atherosclerotic heart disease of native coronary artery without angina pectoris; Z95.5 Presence of coronary angioplasty implant and graft; Z95.1 Presence of aortocoronary bypass graft; Z71.2 Person consulting for explanation of examination or test findings | CPT/HCPCS: 93798; 97802 ==

== ENCOUNTER 2017-08-22 13:00 | Outpatient (RCR) | payer MEDICARE, SELFPAY ==
--- NOTE | 2017-08-15 10:57 | PCM.CR.ITP ---
General Information - General Information Admitting Diagnosis: PCI with KATHY - Education/Goals Barriers to Learning: None Individual Counselin-Day Assessment: Abnormal Cholesterol Levels, Overweight/Obesity, Diabetes Cardiac Rehabilitation Goals: 1. Maintain the individual as the primary focus of care. 2. To improve the patient's quality of life. 3. Identification of cardiac risk factors and provide cardiac risk factor management. 4. Enhance the psychosocial status of the patient. 5. Reconditioning enough to allow the patient to resume customary activities. 6. Control symptoms of cardiac disease Scale for measuring improvement of personal goals: Enter appropriate number in Comments. 2 = Unchanged. 3 = Slightly Better. 4 = Moderate Improvement. 5 = Met my Goal Personal Goals: 30-day Re-assessment: Improve management of stress and emotions, Improve energy level, Participate in home exercise program, Get back to work, or to resume activities faster Exercise - 30-day Assessment - Visit Date of Eval: 08/15/17 Session #:: 5 - Stages of Change Stages of Change:: Contemplate - Exercise Prescription Mode:: [employer], [employer] Frequency (x/week): 3 Duration:: 30 METs - Progression: 0.5-1 MET as tolerated: 2 Target Heart Rate:: 95-115 Max HR 83 - Hypertension Resting Blood Pressure:: 98/40 Peak Exercise Blood Pressure:: 130/62 Medication Changes:: No - Education Goals:: Warm-up, RPE DANICA Scale, S/S, Safe Exercise, Self-Monitoring - Exercise Program Goals Exercise Program Goals: Aerobic Activity >30 min, B/P <130/80 Nutrition - Initial Assessment - Program Goals Nutrition Program Goals: LDL <70. Total Cholesterol <200. HDL >45. Triglycerides <150. HgbA1C <7%. BMI <25 - Diabetes Do you monitor your blood sugar at home?: Yes Nutrition - 30-Day Assessment - Program Goals Nutrition Program Goals: LDL <70. Total Cholesterol <200. HDL >45. Triglycerides <150. HgbA1C <7%. BMI <25 - Visit Date of Eval: 08/15/17 - Stages of Change Stages of Change:: Contemplate - Lipids Has the patient seen the dietitian?: No - Diabetes Diabetes:: Yes - Weight Management Weight:: 103.873 kg - Intervention Referral to dietitian:: Yes Referral to Diabetic Clinic:: Yes Will attend diet classes:: Yes - Education Attended class for:: Signs & symptoms of hypoglycemia, Signs & symptoms of hyperglycemia, Relate diabetes to coronary artery disease, Healthy eating Nutrition - 60-Day Assessment - Program Goals Nutrition Program Goals: LDL <70. Total Cholesterol <200. HDL >45. Triglycerides <150. HgbA1C <7%. BMI <25 - Stages of Change Stages of Change:: Contemplate - Lipids Has the patient seen the dietitian?: No - Diabetes Diabetes:: Yes - Weight Management Weight:: 103.873 kg - Intervention Referral to dietitian:: Yes Referral to Diabetic Clinic:: Yes Will attend diet classes:: Yes - Education Attended class for:: Signs & symptoms of hypoglycemia, Signs & symptoms of hyperglycemia, Relate diabetes to coronary artery disease, Healthy eating Tobacco - Initial Assessment - Program Goals Tobacco Program Goals: Complete smoking cessation. Attend education classes. Improve Knowledge Test score - Learning Barriers Learning Barriers: Ready to Learn Tobacco - 30-Day Assessment - Program Goals Tobacco Program Goals: Complete smoking cessation. Attend education classes. Improve Knowledge Test score - Stage of Change Stages of Change:: Contemplate - Family Support Do you have family support?: Yes - Tobacco Use Tobacco Use: Non-smoker Do you use smokeless tobacco?: No - Intervention Smoking Cessation Referral:: No Individual Education/Counseling:: No Education Schedule Given:: Yes - Education Attended class for:: Tobacco triggers, Coronary artery disease, Risk factors, Sexuality, Medical compliance, Cardiac A&P, Angina signs & symptoms Psychosocial - Initial Assess - Target Goals Target Goals: Assess presence or absence of depression. Using a valid screening tool, maximizes coping skills. Positive support system - Psychosocial Test Tool Used:: HANDS Depression Questionnaire - Assistive Devices Fall Risk Assessed:: Yes Psychosocial - 30-Day Assess - Target Goals Target Goals: Assess presence or absence of depression. Using a valid screening tool, maximizes coping skills. Positive support system - Stages of Change Stages of Change:: Contemplate - Psychosocial Test Tool Used:: HANDS Depression Questionnaire - Intervention PS - Interventions: Yes Attend Stress Management Classes, Yes Uses Stress Management Skills, No Referral to Mental Health, No Referral to [facility] Case Management, No Referral to Physician - Education Attended classes for:: Coping techniques, Signs & symptoms of depression, Stress management, Relaxation techniques - Assistive Devices Assistive Devices:: Cane Fall Risk Assessed:: Yes Patient Health Questionnaire 30-Day Re-eval Assessment 1. Little interest or pleasure in doing things: Not at all 2. Feeling down, depressed, or hopeless: Nearly every day 3. Trouble falling or staying asleep, or sleeping too much: More than half the days 4. Feeling tired or having little energy: More than half the days 5. Poor appetite or overeating: Nearly every day 6. Feeling bad about yourself -- or that you are a failure or have let yourself or your family down: Nearly every day 7. Trouble concentrating on things, such as reading the newspaper or watching television: Nearly every day 8. Moving or speaking so slowly that other people could have noticed. Or the opposite - being so fidgety or restless that you have been moving around a lot more than usual: Several days 9. Thoughts that you would be better off , or of hurting yourself in some way: Several days How difficult have these problems made it for you to do your work, take care of things at home, or get along with other people?: Somewhat difficult Total Score: 18 Self-Efficacy 30-Day Re-eval Assessment We would like to know how confident you are in doing certain activities. Please select your confidence level for:: Select your confidence level for the following using the scale 1-10 where 1 is not at all confident and 10 is totally confident. Your score is the average of all 6 responses. Fatigue: How confident are you that you can keep the fatigue caused by your disease from interfering with the things you want to do? Select Number: 6 Physical Discomfort or Pain: How confident are you that you can keep the physical discomfort or pain of your disease from interfering with the things you want to do? Select Number: 4 Emotional Distress: How confident are you that you can keep the emotional distress caused by your disease from interfering with the things you want to do? Select Number: 5 Other Symptoms or Health Problems: How confident are you that you can keep other symptoms or health problems from interfering with the things you want to do? Select Number: 4 Different Tasks and Activities: How confident are you that you can do the different tasks and activities needed to manage your health condition so as to reduce your need to see a doctor? Select Number: 8 Medication: How confident are you that you can do things other than just taking medication to reduce how much your illness affects your everyday life? Select Number: 8 Total Score:: 5
[2017-08-15 11:06] VITALS: BP 130/62; BP 98/40
== END 2017-08-23 23:59 ==
LOC: CR 13:00
PROVIDERS: Family Provider Family Medicine; PCP Family Medicine; Visit Provider Internal Medicine Cardiovascular Disease
DX: Z95.5 Presence of coronary angioplasty implant and graft (principal); Z95.1 Presence of aortocoronary bypass graft; I25.10 Atherosclerotic heart disease of native coronary artery without angina pectoris
CPT/HCPCS: 93798

== ENCOUNTER 2017-09-05 14:13 | Outpatient (RCR) | payer MEDICARE, SELFPAY | END 2017-09-05 23:59 | LOC: DC 14:13 | PROVIDERS: Family Provider Family Medicine; PCP Family Medicine; Visit Provider Internal Medicine Cardiovascular Disease | DX: E11.22 Type 2 diabetes mellitus with diabetic chronic kidney disease (principal); Z95.1 Presence of aortocoronary bypass graft | CPT/HCPCS: G0108 ==

== ENCOUNTER 2017-09-21 13:00 | Outpatient (RCR) | payer MEDICARE, SELFPAY ==
[2017-08-24 01:11] VITALS: BP 130/62; BP 98/40
--- NOTE | 2017-09-14 10:56 | PCM.CR.ITP ---
General Information - General Information Admitting Diagnosis: PCI with AKTHY - Education/Goals Individual Counselin-Day Assessment: Abnormal Cholesterol Levels, Overweight/Obesity, Diabetes Cardiac Rehabilitation Goals: 1. Maintain the individual as the primary focus of care. 2. To improve the patient's quality of life. 3. Identification of cardiac risk factors and provide cardiac risk factor management. 4. Enhance the psychosocial status of the patient. 5. Reconditioning enough to allow the patient to resume customary activities. 6. Control symptoms of cardiac disease Scale for measuring improvement of personal goals: Enter appropriate number in Comments. 2 = Unchanged. 3 = Slightly Better. 4 = Moderate Improvement. 5 = Met my Goal Personal Goals: 60-day Re-assessment: Improve management of stress and emotions, Improve energy level, Participate in home exercise program, Get back to work, or to resume activities faster Exercise - 60-Day Assessment - Visit Date of Eval: 09/14/17 - 80% compliant Session #:: 11 - Stages of Change Stages of Change:: Action - Exercise Prescription Mode:: Biodyne, NuStep, Arm Ergometer Frequency (x/week): 3 Duration:: 30 METs: 3.0 20% increase Target Heart Rate:: 115-123 max 90 BS of 243 - Hypertension Resting Blood Pressure:: 104/58 Peak Exercise Blood Pressure:: 160/62 Nutrition - Initial Assessment - Program Goals Nutrition Program Goals: LDL <70. Total Cholesterol <200. HDL >45. Triglycerides <150. HgbA1C <7%. BMI <25 - Diabetes Do you monitor your blood sugar at home?: Yes Nutrition - 60-Day Assessment - Program Goals Nutrition Program Goals: LDL <70. Total Cholesterol <200. HDL >45. Triglycerides <150. HgbA1C <7%. BMI <25 - Visit Date of Eval: 09/14/17 - Stages of Change Stages of Change:: Action - Lipids Has the patient seen the dietitian?: No - Diabetes Diabetes:: Yes Random Blood Glucose:: 400 - Dr. Huddleston contacted - Weight Management Weight:: 102.965 kg - Intervention Will attend diet classes:: Yes - Education Attended class for:: Signs & symptoms of hypoglycemia, Signs & symptoms of hyperglycemia, Relate diabetes to coronary artery disease, Healthy eating Tobacco - Initial Assessment - Program Goals Tobacco Program Goals: Complete smoking cessation. Attend education classes. Improve Knowledge Test score - Learning Barriers Learning Barriers: Ready to Learn Tobacco - 60-Day Assessment - Program Goals Tobacco Program Goals: Complete smoking cessation. Attend education classes. Improve Knowledge Test score - Stage of Change Stages of Change:: Action - Learning Barriers Learning Barriers: Participates in education - Family Support Do you have family support?: Yes - Tobacco Use Tobacco Use: Non-smoker Do you use smokeless tobacco?: No - Intervention Smoking Cessation Referral:: No Individual Education/Counseling:: No Education Schedule Given:: Yes - Education Attended class for:: Tobacco triggers, Coronary artery disease, Risk factors, Sexuality, Medical compliance, Cardiac A&P, Angina signs & symptoms Psychosocial - Initial Assess - Target Goals Target Goals: Assess presence or absence of depression. Using a valid screening tool, maximizes coping skills. Positive support system - Psychosocial Test Tool Used:: HANDS Depression Questionnaire - Assistive Devices Fall Risk Assessed:: Yes Psychosocial - 60-Day Assess - Target Goals Target Goals: Assess presence or absence of depression. Using a valid screening tool, maximizes coping skills. Positive support system - Stages of Change Stages of Change:: Action - Psychosocial Test Tool Used:: HANDS Depression Questionnaire - Intervention PS - Interventions: Yes Attend Stress Management Classes, Yes Uses Stress Management Skills, No Referral to Mental Health, No Referral to [facility] Case Management, No Referral to Physician - Education Attended classes for:: Coping techniques, Signs & symptoms of depression, Stress management, Relaxation techniques - Assistive Devices Assistive Devices:: Cane Fall Risk Assessed:: Yes Patient Health Questionnaire 60-Day Re-eval Assessment 1. Little interest or pleasure in doing things: Not at all 2. Feeling down, depressed, or hopeless: Several days 3. Trouble falling or staying asleep, or sleeping too much: More than half the days 4. Feeling tired or having little energy: More than half the days 5. Poor appetite or overeating: Nearly every day 6. Feeling bad about yourself -- or that you are a failure or have let yourself or your family down: Nearly every day 7. Trouble concentrating on things, such as reading the newspaper or watching television: Nearly every day 8. Moving or speaking so slowly that other people could have noticed. Or the opposite - being so fidgety or restless that you have been moving around a lot more than usual: Several days 9. Thoughts that you would be better off , or of hurting yourself in some way: Several days How difficult have these problems made it for you to do your work, take care of things at home, or get along with other people?: Somewhat difficult Total Score: 16 Self-Efficacy 60-Day Re-eval Assessment We would like to know how confident you are in doing certain activities. Please select your confidence level for:: Select your confidence level for the following using the scale 1-10 where 1 is not at all confident and 10 is totally confident. Your score is the average of all 6 responses. Fatigue: How confident are you that you can keep the fatigue caused by your disease from interfering with the things you want to do? Select Number: 6 Physical Discomfort or Pain: How confident are you that you can keep the physical discomfort or pain of your disease from interfering with the things you want to do? Select Number: 4 Emotional Distress: How confident are you that you can keep the emotional distress caused by your disease from interfering with the things you want to do? Select Number: 5 Other Symptoms or Health Problems: How confident are you that you can keep other symptoms or health problems from interfering with the things you want to do? Select Number: 4 Different Tasks and Activities: How confident are you that you can do the different tasks and activities needed to manage your health condition so as to reduce your need to see a doctor? Select Number: 4 Medication: How confident are you that you can do things other than just taking medication to reduce how much your illness affects your everyday life? Select Number: 8 Total Score:: 5
[2017-09-14 11:06] VITALS: BP 104/58; BP 160/62
== END 2017-09-22 23:59 ==
LOC: CR 13:00
PROVIDERS: Family Provider Family Medicine; PCP Family Medicine; Visit Provider Internal Medicine Cardiovascular Disease
DX: I25.10 Atherosclerotic heart disease of native coronary artery without angina pectoris (principal); Z95.1 Presence of aortocoronary bypass graft; Z95.5 Presence of coronary angioplasty implant and graft
CPT/HCPCS: 93798

== ENCOUNTER 2017-10-05 13:00 | Outpatient (RCR) | payer MEDICARE, SELFPAY ==
[2017-09-23 00:59] VITALS: BP 104/58; BP 160/62
== END 2017-10-23 23:59 ==
LOC: CR 13:00
PROVIDERS: Family Provider Family Medicine; PCP Family Medicine; Visit Provider Internal Medicine Cardiovascular Disease
DX: I25.10 Atherosclerotic heart disease of native coronary artery without angina pectoris (principal); Z95.1 Presence of aortocoronary bypass graft; Z95.5 Presence of coronary angioplasty implant and graft
CPT/HCPCS: 93798

== ENCOUNTER 2017-10-13 14:27 | Observation (INO) | payer MEDICARE, SELFPAY ==
[2017-10-13] VITALS (10 sets, daily range): BP systolic 105–126; BP diastolic 53–70; PULSE 63–75; RESP 14–20; TEMP 36.5–36.9; O2SAT 92–97; BMI 34.6; BMI 34.7
--- NOTE | 2017-10-13 15:06 | EKG12_ITS ---
Test Reason : L ARM PAIN Blood Pressure : / mmHG Vent. Rate : 073 BPM Atrial Rate : 073 BPM P-R Int : 212 ms QRS Dur : 110 ms QT Int : 414 ms P-R-T Axes : 046 068 042 degrees QTc Int : 456 ms Sinus rhythm with 1st degree A-V block Poor R wave progression Confirmed by MYRA CULLEN, LESLI ([id number]), assistant film editor MARLON TRUJILLO ([id number]) on 10/16/2017 12:56:07 PM Referred By: MIKE/SCHUYLER Confirmed By:LESLI RENTERIA MD
--- NOTE | 2017-10-13 15:15 | RAD_ITS ---
STUDY: X-RAY CHEST REASON FOR EXAM: Male, 67 years old. Chest pain TECHNIQUE: PA and lateral views of the chest. COMPARISON: 03/14/2017 FINDINGS: Cardiac monitoring leads overlie the chest. The lungs are clear and expanded. There is no demonstrated pleural abnormality. There is mild cardiac enlargement. Normal mediastinum and can. Normal visualized pulmonary arteries. There is mild calcification of the aortic arch. There are diffuse degenerative changes of the visualized thoracic spine. Normal visualized ribs, clavicles, and shoulders. There is no demonstrated abnormality of the visualized soft tissue structures of the upper abdomen. RAD/Chest PA and Lateral IMPRESSION: Postoperative changes of coronary artery bypass graft. No focal consolidation. Electronically Signed: Landon Cannon DO at 15:40 EDT Tel , Service support ,
[2017-10-13 15:28] LABS: Absolute Lymphocyte Count 1.03 X10^3/ul (0.83-4.51); Absolute Neutrophil Count 8.3 X10^3/uL (2.0-7.7); Basophil# 0.03 X10^3/uL; Basophil% 0.3 % (0-1); Eosinophil# 0.15 X10^3/uL; Eosinophils% 1.5 % (0-5); Hematocrit 36.1 % (40-54); Hemoglobin 12.5 g/dl (13.0-16.5); Lymphocyte # 1.03 X10^3/ul (4.0); Lymphocyte % 10.2 % (19-41); Mean Corp Hgb Conc 34.6 g/gl (32-36); Mean Corpuscular Hgb 32.1 pg (27.0-32.0); Mean Corpuscular Volume 92.8 fL (80-94); Mean Platelet Vol. 10.6 fl (6.2-12.0); Monocyte# 0.54 X10^3/uL; Monocyte% 5.4 % (0-10); Neutrophil # 8.31 X10^3/uL (2.7-7.7); Neutrophil % 82.4 % (47-70); Platelet Count 201 K/mm3 (150-450); RBC Distribution Width CV 14.9 % (11.6-14.6); RBC Distribution Width SD 48.8 fl (35.1-43.9); Red Blood Count 3.89 M/mm3 (4.6-6.2); White Blood Count 10.1 K/mm3 (4.4-11.0)
[2017-10-13] MEDS: Aspirin 81 MG TAB.CHEW 324 MG PO (15:29)
[2017-10-13 15:31] LABS: POSITIVE COUNT NO; POSITIVE DIFFERENTIAL NO; POSITIVE MORPHOLOGY NO
[2017-10-13 15:39] LABS: Anion Gap 7 (5-15); BUN 51 mg/dL (7-18); BUN/Creat Ratio 26.3 RATIO (10-20); Calcium,Total 9.4 mg/dL (8.5-10.1); Chloride 97 mmol/L (98-107); Creatinine, Serum 1.94 mg/dL (0.70-1.30); EST Glomerular Filtration Rate 37 mL/min (>60); Est Glom Filt Rate - Afr Amer 45 mL/min (>60); Estimated Creatinine Clearance 36.24 ml/min; Glucose 414 mg/dL (74-106); Potassium 3.6 mmol/L (3.5-5.1); Sodium Level 133 mmol/L (136-145)
--- NOTE | 2017-10-13 16:06 | ED.VISSUMM ---
- ER Visit Summary Date of Service: 10/13/17 Chief Complaint: Chest neck and arm pain History of Present Illness: The patient is a 67 M who presents with chest pain neck pain and arm pain. This is been present for 2 days. He states it waxes and wanes but he does not believe it has ever completely resolved. He complains of pain in left side of his chest and the left side of his neck down into his upper arm. He reports associated mild shortness of breath and lightheadedness. He is also had some rhinorrhea but no other infectious symptoms. No fevers cough. No vomiting or diarrhea. He denies nausea or diaphoresis. He does have a history of coronary artery disease, prior [place], prior cardiac arrest, CABG, cardiac cath with stent. Physical Examination: Afebrile vitals within normal limits Moist mucous membranes Left paraspinal neck and shoulder tenderness No chest wall tenderness Heart regular rate and rhythm no murmur Lungs are clear with no rales rhonchi wheezes Abdomen soft Extremities nontender palpable radial pulses Alert Test Results: EKG shows sinus rhythm with a first-degree AV block with no acute ischemic changes. Chest x-ray shows postoperative changes from his CABG but no acute process. No focal consolidation. Labs notable for creatinine of 1.94 which appears to be near his baseline. Troponin is negative. Emergency Department Course and Treatment: Although patient complains of 10 out of 10 pain he is resting comfortably in no distress. He was given aspirin. His workup is unremarkable. His neck pain seems like it could be due to a musculoskeletal etiology however this would not explain his report of left-sided chest pain shortness of breath lightheadedness. Given his extensive cardiac history I do feel he will need admitted for further evaluation and serial enzymes. Treatment Plan: [] Disposition: Admit Impression: Chest pain This note was generated with [employer]izo dictation software. It may contain incorrect words, spelling, and punctuation that were not noted in review of the chart prior to signing ED Disposition - Plan for ED Patient: Chief Complaint: Chest Pain Referrals: Jelena Huddleston MD [Primary Care Provider] -
--- NOTE | 2017-10-13 16:09 | ED.DCSUM_ITS ---
- ER Visit Summary Date of Service: 10/13/17 Chief Complaint: Chest neck and arm pain History of Present Illness: The patient is a 67 M who presents with chest pain neck pain and arm pain. This is been present for 2 days. He states it waxes and wanes but he does not believe it has ever completely resolved. He complains of pain in left side of his chest and the left side of his neck down into his upper arm. He reports associated mild shortness of breath and lightheadedness. He is also had some rhinorrhea but no other infectious symptoms. No fevers cough. No vomiting or diarrhea. He denies nausea or diaphoresis. He does have a history of coronary artery disease, prior [place], prior cardiac arrest, CABG, cardiac cath with stent. Physical Examination: Afebrile vitals within normal limits Moist mucous membranes Left paraspinal neck and shoulder tenderness No chest wall tenderness Heart regular rate and rhythm no murmur Lungs are clear with no rales rhonchi wheezes Abdomen soft Extremities nontender palpable radial pulses Alert Test Results: EKG shows sinus rhythm with a first-degree AV block with no acute ischemic changes. Chest x-ray shows postoperative changes from his CABG but no acute process. No focal consolidation. Labs notable for creatinine of 1.94 which appears to be near his baseline. Troponin is negative. Emergency Department Course and Treatment: Although patient complains of 10 out of 10 pain he is resting comfortably in no distress. He was given aspirin. His workup is unremarkable. His neck pain seems like it could be due to a musculoskeletal etiology however this would not explain his report of left- sided chest pain shortness of breath lightheadedness. Given his extensive cardiac history I do feel he will need admitted for further evaluation and serial enzymes. Treatment Plan: [] Disposition: Admit Impression: Chest pain This note was generated with [employer] dictation software. It may contain incorrect words, spelling, and punctuation that were not noted in review of the chart prior to signing ED Disposition - Plan for ED Patient: Chief Complaint: Chest Pain Referrals: Jelena Huddleston MD [Primary Care Provider] -
--- NOTE | 2017-10-13 16:16 | NURSING ---
DR ARAGON FOR DR MURDOCK
--- NOTE | 2017-10-13 16:38 | PCM.HP.STD ---
Problem List (1) Chronic diastolic (congestive) heart failure Status: Chronic (2) History of coronary artery stent placement Status: Chronic Comment: [id number] RCA with 3.0 x 16 Promus 11/02/16 (3) H/O coronary artery bypass surgery Status: Chronic Comment: CABG x 2 FUENTES-LAD, SVG-OM 2011 (4) Chronic kidney disease Status: Chronic (5) PAOD (peripheral arterial occlusive disease) Status: Chronic (6) Chest pain Status: Acute Qualifiers: Chest pain type: unspecified Qualified Code(s): R07.9 - Chest pain, unspecified History of Present Illness Date of Admission: 10/13/17 Chief Complaint: Chest pain - 1 day The patient is a 67 year old M with multiple comorbidities including CAD status post CABG, stent, follows with Dr. Sanders in the outpatient, hypertension, chronic diastolic heart failure, LAURA/OHS on BiPAP comes in with complains of chest discomfort ongoing for a couple of days. Chest pain is described as dull color, radiates to the left side of the chest wall into the neck and down the arms. Not associated with nausea or vomiting or diaphoresis or dizziness or palpitations. He felt dizzy today as well as the chest discomfort and decided to come to the ED. Vitals in the ED was stable. EKG was unchanged from previous. Chest x-ray shows no acute abnormalities Past Medical History Past Medical History (Chronic Problems): Chronic Problems (Last Reviewed 07/23/17 @ 12:50 by Stephania Mike) Chronic diastolic (congestive) heart failure (Chronic) History of coronary artery stent placement (Chronic ~11/02/16) [id number] RCA with 3.0 x 16 Promus 11/02/16 H/O coronary artery bypass surgery (Chronic ~2011) CABG x 2 FUENTES-LAD, SVG-OM 2011 Atherosclerosis of coronary artery of [place] heart without angina pectoris (Chronic) [id number] RCA with 3.0 x 16 Promus 11/02/16 CABG x 2 FUENTES-LAD, SVG-OM 2011 ZHAO (dyspnea on exertion) (Chronic) Chronic kidney disease (Chronic) PAOD (peripheral arterial occlusive disease) (Chronic) Venous insufficiency (Chronic) Depression (Chronic) Neuropathic pain (Chronic) Obstructive sleep apnea (Chronic) DM (diabetes mellitus), type 2, uncontrolled (Chronic) STEMI (ST elevation myocardial infarction) (Chronic) Diabetes mellitus (Chronic) Insulin-dependent Chronic kidney disease, stage 3 (Chronic) Diabetic nephropathy Iron deficiency anemia (Chronic) Anemia of chronic disease (Chronic) Hyperlipidemia (Chronic) Hypertension (Chronic) Open wound of knee, leg, and ankle, complicated (Chronic) Lymphedema (Chronic) Bilateral Venous insufficiency of both lower extremities (Chronic) Medical History: Medical History (Last Reviewed 07/23/17 @ 12:50 by Stephania Mike) Chronic diastolic (congestive) heart failure (Chronic) I50.32 Atherosclerosis of coronary artery of [place] heart without angina pectoris (Chronic) I25.10 [id number] RCA with 3.0 x 16 Promus 11/02/16 CABG x 2 FUENTES-LAD, SVG-OM 2011 Hypoxemia (Acute) R09.02 Abnormal pulmonary function test (Acute) R94.2 ZHAO (dyspnea on exertion) (Chronic) R06.09 Chronic kidney disease (Chronic) N18.9 PAOD (peripheral arterial occlusive disease) (Chronic) I77.9 Venous insufficiency (Chronic) Depression (Chronic) F32.9 Neuropathic pain (Chronic) Obstructive sleep apnea (Chronic) G47.33 Dyspnea (Acute) R06.00 Anemia (Acute) D64.9 Ventricular tachycardia (Acute) I47.2 DM (diabetes mellitus), type 2, uncontrolled (Chronic) E11.65 Bradycardia (Acute) R00.1 Metabolic acidosis (Acute) E87.2 Cardiogenic shock (Acute) R57.0 STEMI (ST elevation myocardial infarction) (Chronic) Cardiac arrest (Acute) I46.9 Hypokalemia (Acute) E87.6 Hyponatremia (Acute) E87.1 LIBRADO (acute kidney injury) (Acute) N17.9 Uncontrolled type 2 DM with hyperosmolar nonketotic hyperglycemia (Acute) E11.00 Diabetes mellitus (Chronic) E11.9 Insulin-dependent Chronic kidney disease, stage 3 (Chronic) Diabetic nephropathy Iron deficiency anemia (Chronic) D50.9 Anemia of chronic disease (Chronic) D63.8 Hyperlipidemia (Chronic) E78.5 Hypertension (Chronic) I10 Open wound of knee, leg, and ankle, complicated (Chronic) S81.009A, S81.809A, S91.009A Lymphedema (Chronic) I89.0 Bilateral Venous insufficiency of both lower extremities (Chronic) I87.2 Arthritis M19.90 Chronic congestive heart failure I50.9 Diabetes E11.9 Hypertension I10 Obstructive sleep apnea G47.33 PAD (peripheral artery disease) I73.9 Acute on chronic systolic (congestive) heart failure (Inactive) I50.23 CHF (congestive heart failure) (Inactive) I50.9 Ejection fraction 45% as of December 2014 PAD (peripheral artery disease) (Inactive) I73.9 Allergies lisinopril Allergy (Verified 10/13/17 14:28) Other COUGH Home Medications: Ambulatory Orders Medication Instructions Recorded Atorvastatin Calcium [Lipitor] 80 mg PO QHS 01/15/16 Cholecalciferol (VIT D3) [Vitamin 1,000 unit PO DAILY 01/15/16 D3] Magnesium Oxide 400 mg PO BID 01/15/16 Multivitamins,Therapeutic 1 tab PO DAILY 01/15/16 [Multivitamin] Insulin Glargine,Hum.rec.anlog 55 unit SQ BID 11/02/16 [Lantus] Nitroglycerin [Nitrostat] 0.4 mg SUBLINGUAL Q5M PRN 11/02/16 Duloxetine Hcl [Cymbalta] 60 mg PO DAILY cap 11/16/16 Carvedilol [Coreg (Beta Matthew)] 3.125 mg PO BID #60 tab 11/22/16 Pantoprazole Sodium [Protonix] 40 mg PO BID #60 tab 11/22/16 Gabapentin [Neurontin] 600 mg PO 4X/DAY 11/26/16 Humalog See Protocol SC 4X/DAY 11/26/16 Clopidogrel Bisulfate [Plavix] 75 mg PO DAILY #30 tab 11/30/16 traZODone [Desyrel] 50 mg PO QHS #30 tab 11/30/16 Iron 65 mg PO BID 03/14/17 furosemide 40 mg tablet 40 mg PO BID tab 07/23/17 potassium chloride ER 20 mEq 20 meq PO BID tab 07/23/17 tablet,extended release(part/cryst) Aspirin [Aspirin, Baby] 81 mg PO QHS 10/13/17 Docusate Sodium [Stool Softener] 50 mg PO BID 10/13/17 Surgical History: Surgical History (Last Reviewed 07/23/17 @ 12:50 by Stephania Mike) History of coronary artery stent placement (Chronic) Onset Date: ~11/02/16 Z95.5 [id number] RCA with 3.0 x 16 Promus 11/02/16 H/O coronary artery bypass surgery (Chronic) Onset Date: ~2011 Z95.1 CABG x 2 FUENTES-LAD, SVG-OM 2011 Coronary bypass graft mechanical complication T82.218A Surgical History: angioplasty, coronary bypass surgery - x 2., - - CABG x 2 2011, PCI x 2 following. Psychiatric History: No pertinent psych hx Lives: Spouse/ Significant Other Smoking Status: Never smoker Tobacco Use: Non-smoker Alcohol: None Drugs: None - *Family History Maternal Family History: Family History (Last Reviewed 07/23/17 @ 12:50 by Stephania Mike) Sister CVA (cerebral vascular accident) Father Heart disease Hypertension Diabetes History Items: No pertinent history Paternal Family History: Family History (Last Reviewed 07/23/17 @ 12:50 by Stephania Mike) Sister CVA (cerebral vascular accident) Father Heart disease Hypertension Diabetes History Items: No pertinent history Review of Systems Constitutional: Reports: Weight Change - weight gain. Denies: Anorexia, Chills, Fever, Malaise, Weakness Eyes: Denies: Blurred vision, Cataracts, Conjunctivae Inflammation HEENT: Denies: Difficulty Hearing, Difficulty Swallowing, Head Aches, Hearing Changes, Sinus Congestion, Sinus Drainage, Sore Throat Cardiovascular: Reports: Chest Pain, Chest Pressure, Chest Tightness, Orthopnea. Denies: Claudication, Edema, Palpitations, Paroxysmal Noc. Dyspnea Respiratory: Denies: Cough, Hemoptysis, Shortness of Breath, Shortness of breath at rest, Shortness of breath upon exertion, Sputum production Gastrointestinal: Denies: Abdominal Pain, Constipation, Hematemesis, Nausea, Vomiting Genitourinary: Denies: Dysuria, Frequency, Incontinence Musculoskeletal: Reports: Neck Pain. Denies: Joint Pain, Joint stiffness, Joint swelling, Joint Tenderness Skin: Denies: Pruritis, Rash, Wounds Neurological: Denies: Numbness, Tingling, Focal weakness Psychiatric: Denies: Anxiety, Depression, Homicidal Ideations, Suicidal Ideations Hematologic/ Lymphatic: Denies: Easy Bruising, Easy Bleeding VTE Information - Inpt Only VTE Present on Admission: No VTE Pharm Prophylaxis ordered?: Yes Patient Problems: Active and Suspected Problems (Last Reviewed 07/23/17 @ 12:50 by Stephania Mike) Chest pain (Acute) - Physical Exam General: Alert, Oriented x3, Cooperative, No apparent distress HEENT: Atraumatic, PERRLA, EOMI, Normocephalic Oral: Moist Mucosa Neck: Supple Lungs: Clear to auscultation, Normal air movement Cardiovascular: Regular rate, Regular Rhythm, Normal S1, Normal S2, No murmurs Abdomen: Bowel Sounds Present, Soft, Non Tender, Non-Distended, No Hepato-splenomegaly Extremities: No edema Skin: No rashes, No breakdown Musculoskeletal: No Tenderness to Palpation of Joints or Extremities Lymphatic: No Cervical, Supraclavicular, or Inguinal Adenopathy Neurological: Cranial nerves II-XII grossly intact Psych/Mental Status: Normal Affect, Appropriate Vital Signs Temp Pulse Resp BP Pulse Ox 97.9 F 72 20 H 126/70 H 92 10/13/17 14:28 10/13/17 16:20 10/13/17 16:20 10/13/17 16:20 10/13/17 16:20 Oxygen Delivery Method Room Air Weight: 103.3 kg Body Mass Index (BMI) 34.6 Finger Stick Blood Glucose 286 Laboratory Tests Past 24 Hrs 10/13/17 10/13/17 14:40 14:40 WBC 10.1 RBC 3.89 L Hgb 12.5 L Hct 36.1 L MCV 92.8 MCH 32.1 H MCHC 34.6 RDW 14.9 H RDW Differential 48.8 H Plt Count 201 MPV 10.6 Immature Gran % (Auto) 0.200 Neut % (Auto) 82.4 H Lymph % (Auto) 10.2 L Faulk % (Auto) 5.4 Eos % (Auto) 1.5 Baso % (Auto) 0.3 Absolute Neuts (auto) 8.3 H Absolute Lymphs (auto) 1.03 Total Counted Not Reportable Sodium 133 L Potassium 3.6 Chloride 97 L Carbon Dioxide 29.0 Anion Gap 7 BUN 51 H Creatinine 1.94 H Estim Creat Clear Calc 36.24 Est GFR (MDRD) Af Amer 45 L Est GFR (MDRD) Non-Af 37 L BUN/Creatinine Ratio 26.3 H Glucose 414 H Calcium 9.4 Troponin I < 0.015 Assessment/Plan All Active Problems (Last Reviewed 07/23/17 @ 12:50 by Stephania Mike) Chest pain (Acute) Hypoxemia (Acute) Abnormal pulmonary function test (Acute) Dyspnea (Acute) Anemia (Acute) Ventricular tachycardia (Acute) Bradycardia (Acute) Metabolic acidosis (Acute) Cardiogenic shock (Acute) Cardiac arrest (Acute) Hypokalemia (Acute) Hyponatremia (Acute) LIBRADO (acute kidney injury) (Acute) Uncontrolled type 2 DM with hyperosmolar nonketotic hyperglycemia (Acute) Acute on chronic renal failure (Resolved) Cellulitis of left leg (Resolved) Cellulitis of right leg (Resolved) Chest pain (Resolved) Hypotension (Resolved) 67-year-old male with past medical history of CAD status post stent, chronic diastolic CHF, hypertension, type II DM, CKD comes in with complaints of chest pain, shortness of breath that has been going on for about 2 days associated with dizziness today. 1. Chest pain, atypical, in a patient with known cardiovascular risk factors Plan: Admit to PCU, monitor on telemetry, trend troponins, stress test on Sunday, continue with aspirin, statin, beta-matthew 2. Hypertension, controlled, continue home regimen 3. Type II DM, blood sugars are uncontrolled, continue on home insulin regimen, Accu-Cheks with insulin sliding scale 4. Hyperlipidemia, on statin 5. CKD stage III, creatinine has been fluctuating, will monitor 6. Chronic diastolic CHF, no overt signs of acute exacerbation now, will check BNPep 7. DVT PPx- Heparin SC Code Visit OBSV E&M: [id number] Initial observation care L3
--- NOTE | 2017-10-13 16:45 | NURSING ---
PCU OBS CP PAINTSIL
--- NOTE | 2017-10-13 16:57 | NURSING ---
Kwasi notified patient may transfer to PCU.
--- NOTE | 2017-10-13 17:22 | EKG12_ITS ---
Test Reason : CP Blood Pressure : / mmHG Vent. Rate : 071 BPM Atrial Rate : 071 BPM P-R Int : 218 ms QRS Dur : 116 ms QT Int : 450 ms P-R-T Axes : -02 -16 022 degrees QTc Int : 489 ms Sinus rhythm with 1st degree A-V block Incomplete left bundle branch block Prolonged QT Abnormal ECG Confirmed by MYRA CULLEN, LESLI ([id number]), multimedia editor MARLON TRUJILLO ([id number]) on 10/16/2017 2:30:08 PM Referred By: Mckinley Sanders Confirmed By:LESLI RENTERIA MD
[2017-10-13 17:48] LABS: D-Dimer Quantitative (DVT/PE) 0.37 FEU/ug/m (0.27-0.49)
[2017-10-13 17:55] LABS: BNP,B-Type NATRIURETIC PEPTIDE 185.9 pg/mL (0-100)
[2017-10-13] MEDS: Furosemide 40 MG Tablet PO (17:55)
[2017-10-13] MEDS: Acetaminophen 325 MG Tablet 650 MG PO (17:57)
[2017-10-13 18:06] LABS: Bedside Glucose 308 mg/dL (70-110)
[2017-10-13] MEDS: Insulin Lispro 100 UNIT/ML INSULN.PEN SQ ×2 (18:17→21:01)
[2017-10-13] MEDS: Docusate Sodium 100 MG/10 ML UDC 50 MG PO (20:58)
[2017-10-13] MEDS: Heparin Injection (Vial) 5,000 UNIT/ML VIAL 5000 UNIT SC (20:59)
[2017-10-13] MEDS: Carvedilol 3.125 MG TABLET PO (21:01)
[2017-10-13] MEDS: Aspirin 81 MG TAB.CHEW PO (21:01)
[2017-10-13] MEDS: Atorvastatin Calcium 80 MG Tablet PO (21:01)
[2017-10-13] MEDS: Pantoprazole Sodium 40 MG Tablet PO (21:01)
[2017-10-13] MEDS: Gabapentin 600 MG Tablet PO (21:01)
[2017-10-13] MEDS: traZODone 50 MG Tablet PO (21:01)
[2017-10-13 22:20] LABS: Bedside Glucose 384 mg/dL (70-110)
[2017-10-14] VITALS (11 sets, daily range): BP systolic 105–126; BP diastolic 60–68; PULSE 60–77; RESP 16; TEMP 36.5–36.7; O2SAT 95–99
[2017-10-14 03:58] LABS: Partial Thromboplast Time 25.2 Seconds (24.1-36.2); Prothrombin Time (Protime)PT. 13.1 SECONDS (11.7-14.9)
[2017-10-14 04:02] LABS: Absolute Lymphocyte Count 1.36 X10^3/ul (0.83-4.51); Absolute Neutrophil Count 4.8 X10^3/uL (2.0-7.7); Basophil# 0.02 X10^3/uL; Basophil% 0.3 % (0-1); Eosinophil# 0.22 X10^3/uL; Eosinophils% 3.1 % (0-5); Hematocrit 35.5 % (40-54); Hemoglobin 11.9 g/dl (13.0-16.5); Lymphocyte # 1.36 X10^3/ul (4.0); Lymphocyte % 19.4 % (19-41); Mean Corp Hgb Conc 33.5 g/gl (32-36); Mean Corpuscular Volume 92.4 fL (80-94); Mean Platelet Vol. 10.2 fl (6.2-12.0); Monocyte# 0.57 X10^3/uL; Monocyte% 8.1 % (0-10); Neutrophil # 4.82 X10^3/uL (2.7-7.7); Neutrophil % 68.7 % (47-70); Platelet Count 199 K/mm3 (150-450); RBC Distribution Width CV 15.3 % (11.6-14.6); RBC Distribution Width SD 49.9 fl (35.1-43.9); Red Blood Count 3.84 M/mm3 (4.6-6.2)
[2017-10-14 04:03] LABS: Anion Gap 10 (5-15); BUN 49 mg/dL (7-18); BUN/Creat Ratio 26.9 RATIO (10-20); Chloride 98 mmol/L (98-107); Creatinine, Serum 1.82 mg/dL (0.70-1.30); EST Glomerular Filtration Rate 40 mL/min (>60); Est Glom Filt Rate - Afr Amer 48 mL/min (>60); Estimated Creatinine Clearance 38.63 ml/min; Glucose 294 mg/dL (74-106); Potassium 3.1 mmol/L (3.5-5.1); Sodium Level 139 mmol/L (136-145)
[2017-10-14 04:15] LABS: POSITIVE COUNT NO; POSITIVE DIFFERENTIAL NO; POSITIVE MORPHOLOGY NO
[2017-10-14] MEDS: Acetaminophen 325 MG Tablet 650 MG PO ×2 (05:29→12:06)
--- NOTE | 2017-10-14 05:55 | EKG12_ITS ---
Test Reason : AM EKG Blood Pressure : / mmHG Vent. Rate : 065 BPM Atrial Rate : 065 BPM P-R Int : 222 ms QRS Dur : 122 ms QT Int : 468 ms P-R-T Axes : 057 071 034 degrees QTc Int : 486 ms Sinus rhythm with 1st degree A-V block Low voltage QRS (limb leads) Nonspecific intraventricular conduction delay Confirmed by MYRA CULLEN, LESLI ([id number]), manuscript editor MARLON TRUJILLO ([id number]) on 10/16/2017 2:26:03 PM Referred By: Mckinley Sanders Confirmed By:LESLI RENTERIA MD
[2017-10-14 06:55] LABS: Bedside Glucose 291 mg/dL (70-110)
[2017-10-14] MEDS: Ferrous Sulfate 325 MG Tablet PO ×2 (08:52→16:28)
[2017-10-14] MEDS: Multivitamins,Therapeutic Tablet 1 TABLET PO (08:52)
[2017-10-14] MEDS: Magnesium Oxide 400 MG Tablet PO ×2 (08:52→16:28)
[2017-10-14] MEDS: Gabapentin 600 MG Tablet PO ×4 (08:52→21:59)
[2017-10-14] MEDS: Insulin Lispro 100 UNIT/ML INSULN.PEN SQ ×4 (08:53→22:00)
[2017-10-14] MEDS: Furosemide 40 MG Tablet PO ×2 (10:08→17:20)
[2017-10-14] MEDS: Pantoprazole Sodium 40 MG Tablet PO ×2 (10:08→21:59)
[2017-10-14] MEDS: Heparin Injection (Vial) 5,000 UNIT/ML VIAL 5000 UNIT SC ×2 (10:08→22:00)
[2017-10-14] MEDS: Docusate Sodium 100 MG/10 ML UDC 50 MG PO (10:08)
[2017-10-14] MEDS: DULoxetine Hcl 60 MG Capsule PO (10:08)
[2017-10-14] MEDS: Clopidogrel Bisulfate 75 MG Tablet PO (10:08)
--- NOTE | 2017-10-14 10:51 | CPS ---
pt's brought his home Bipap which is set at 16/11 and room air.
[2017-10-14 12:00] LABS: Bedside Glucose 389 mg/dL (70-110)
--- NOTE | 2017-10-14 16:11 | PCM.PN.HOSP ---
Patient Problems: Active and Suspected Problems (Last Reviewed 07/23/17 @ 12:50 by Stephania Mike) Chest pain (Acute) Subjective: Patient seen and examined. He feels well. Denies chest pain, dizziness, chest pain. Vitals are stable. Troponins are negative. Objective: Physical Exam General: Alert, Oriented x3, Cooperative, No apparent distress HEENT: Atraumatic, PERRLA, EOMI, Normocephalic Oral: Moist Mucosa Neck: Supple Lungs: Clear to auscultation, Normal air movement Cardiovascular: Regular rate, Regular Rhythm, Normal S1, Normal S2, No murmurs Abdomen: Bowel Sounds Present, Soft, Non Tender, Non-Distended, No Hepato-splenomegaly Extremities: No edema Skin: No rashes, No breakdown Musculoskeletal: No Tenderness to Palpation of Joints or Extremities Lymphatic: No Cervical, Supraclavicular, or Inguinal Adenopathy Neurological: Cranial nerves II-XII grossly intact Psych/Mental Status: Normal Affect, Appropriate Vitals/I&O's: Vital Signs Temp Pulse Resp BP Pulse Ox 98.0 F 71 16 109/66 99 10/14/17 10:05 10/14/17 11:00 10/14/17 10:05 10/14/17 10:05 10/14/17 10:05 Oxygen Delivery Method Room Air Weight: 102.9 kg Body Mass Index (BMI) 34.7 Intake and Output for Last 24 Hours 10/12/17 10/13/17 10/14/17 23:59 23:59 23:59 Intake Total 720 / 720 520 / 520 Output Total 1125 / 1125 1400 / 1400 Balance -405 / -405 -880 / -880 Laboratory Results 10/13/17 17:54: POC Glucose 308 H 10/13/17 18:15: Troponin I < 0.015 10/13/17 20:53: Troponin I < 0.015 10/13/17 20:57: POC Glucose 384 H 10/14/17 03:40: Sodium 139, Potassium 3.1 L, Chloride 98, Carbon Dioxide 31.0, Anion Gap 10, BUN 49 H, Creatinine 1.82 H, Estim Creat Clear Calc 38.63, Est GFR (MDRD) Af Amer 48 L, Est GFR (MDRD) Non-Af 40 L, BUN/Creatinine Ratio 26.9 H, Glucose 294 H, Calcium 9.0 10/14/17 03:40: WBC 7.0, RBC 3.84 L, Hgb 11.9 L, Hct 35.5 L, MCV 92.4, MCH 31.0, MCHC 33.5, RDW 15.3 H, RDW Differential 49.9 H, Plt Count 199, MPV 10.2, Immature Gran % (Auto) 0.400, Neut % (Auto) 68.7, Lymph % (Auto) 19.4, Mellette % (Auto) 8.1, Eos % (Auto) 3.1, Baso % (Auto) 0.3, Absolute Neuts (auto) 4.8, Absolute Lymphs (auto) 1.36, Total Counted Not Reportable 10/14/17 03:40: PT 13.1, INR 1.0, APTT 25.2 10/14/17 06:44: POC Glucose 291 H 10/14/17 11:15: POC Glucose 389 H Current Medications Acetaminophen (Tylenol) 650 mg PO Q6H PRN PRN PRN Reason: Mild Pain (1-3)/Temp > 100.7 F Last Admin: 10/14/17 12:06 Dose: 650 mg Aspirin (Aspirin, Baby) 81 mg PO QHS [facility] Last Admin: 10/13/17 21:01 Dose: 81 mg Atorvastatin Calcium (Lipitor) 80 mg PO QHS [facility] Last Admin: 10/13/17 21:01 Dose: 80 mg Bisacodyl (Dulcolax) 5 mg PO DAILY PRN PRN PRN Reason: Constipation Carvedilol (Coreg) 3.125 mg PO BID [facility] Last Admin: 10/14/17 10:09 Dose: Not Given Cholecalcifer[facility] ([facility]amin [facility]) [facility] Last Admin: 10/14/17 08:52 Dose: 1,000 unit Clopidogrel Bisulfate (Plavix) 75 mg PO DAILY [facility] Last Admin: 10/14/17 10:08 Dose: 75 mg Dextrose (D50w Syringe) 0 gm IV X1 PRN; Protocol PRN Reason: Hypoglycemia Docusate Sodium (Colace Syrup) 50 mg PO BID [facility] Last Admin: 10/14/17 10:08 Dose: 50 mg Duloxetine HCl (Cymbalta) 60 mg PO DAILY [facility] Last Admin: 10/14/17 10:08 Dose: 60 mg Ferrous Sulfate (Ferrous Sulfate) [facility] Last Admin: 10/14/17 08:52 Dose: 325 mg Furosemide (Lasix) 40 mg PO BIDLX [facility] Last Admin: 10/14/17 10:08 Dose: 40 mg Gabapentin (Neurontin) 600 [facility] Last Admin: 10/14/17 12:02 Dose: 600 mg Glucagon () 1 mg IM .X1 PRN PRN Reason: Hypoglycemia Heparin Sodium (Porcine) (Heparin Na) 5,000 unit SC Q12 [facility] Last Admin: 10/14/17 10:08 Dose: 5,000 unit Insulin Glargine (Lantus ([facility])) 55 units SC BID [facility] Last Admin: 10/14/17 08:52 Dose: 55 units Insulin Human Lispro (Humalog Kwikpen ([facility])) 0 unit SQ ACHS [facility] PRN Reason: Protocol Last Admin: 10/14/17 11:17 Dose: 4 units Magnesium Hydroxide (Milk Of Magnesia) 30 ml PO DAILY PRN PRN Reason: Constipation Magnesium Oxide (Mag-Ox 400) [facility] Last Admin: 10/14/17 08:52 Dose: 400 mg Multivitamins (Multivitamin) 1 tablet [facility] Last Admin: 10/14/17 08:52 Dose: 1 tablet Nitroglycerin (Nitrostat) 0.4 mg SUBLINGUAL Q5M PRN PRN Reason: Chest Pain Ondansetron HCl (Zofran) 4 mg IV Q8H PRN PRN PRN Reason: NAUSEA Pantoprazole Sodium (Protonix) 40 mg PO BID [facility] Last Admin: 10/14/17 10:08 Dose: 40 mg Potassium Chloride (K-Dur) 20 meq [facility] Last Admin: 10/14/17 08:52 Dose: 20 meq Psyllium Hydrophilic Mucilloid (Metamucil) 1 packet PO DAILY PRN PRN PRN Reason: CONSTIPATION Sodium Chloride () 5 - 30 ml IV UD PRN PRN Reason: SALINE FLUSH Trazodone HCl (Desyrel) 50 mg PO QHS [facility] Last Admin: 10/13/17 21:01 Dose: 50 mg Medical Necessity - Tobacco Use Smoking Status: Never smoker Tobacco Use: Non-smoker Assessment/Plan All Active Problems (Last Reviewed 07/23/17 @ 12:50 by Stephania Mike) Chest pain (Acute) Hypoxemia (Acute) Abnormal pulmonary function test (Acute) Dyspnea (Acute) Anemia (Acute) Ventricular tachycardia (Acute) Bradycardia (Acute) Metabolic acidosis (Acute) Cardiogenic shock (Acute) Cardiac arrest (Acute) Hypokalemia (Acute) Hyponatremia (Acute) LIBRADO (acute kidney injury) (Acute) Uncontrolled type 2 DM with hyperosmolar nonketotic hyperglycemia (Acute) Acute on chronic renal failure (Resolved) Cellulitis of left leg (Resolved) Cellulitis of right leg (Resolved) Chest pain (Resolved) Hypotension (Resolved) 67-year-old male with past medical history of CAD status post stent, chronic diastolic CHF, hypertension, type II DM, CKD comes in with complaints of chest pain, shortness of breath that has been going on for about 2 days associated with dizziness today. 1. Chest pain, atypical, in a patient with known cardiovascular risk factors, no events on telemetry, denies any chest pain now, troponins have been negative, On aspirin, statin, beta-james, Plavix, will get a stress test in the morning. 2. Hypokalemia, replace, will recheck in a.m. 3. Hypertension, controlled, continue home regimen 4. Type II DM, blood sugars are uncontrolled, will keep same regimen as patient continue on home insulin regimen, Accu-Cheks with insulin sliding scale 5. Hyperlipidemia, on statin 6. CKD stage III, improved, Cr is 1.82 from 1.94, labs in am 7. Chronic diastolic CHF, no overt signs of acute exacerbation now, BnPep is low 8. DVT PPx- Heparin SC Code Visit Inpatient E&M: 90215 Subs Hosp L2
--- NOTE | 2017-10-14 16:19 | PN_ITS ---
Patient Problems: Active and Suspected Problems (Last Reviewed 07/23/17 @ 12:50 by Stephania Mike) Chest pain (Acute) Subjective: Patient seen and examined. He feels well. Denies chest pain, dizziness, chest pain. Vitals are stable. Troponins are negative. Objective: Physical Exam General: Alert, Oriented x3, Cooperative, No apparent distress HEENT: Atraumatic, PERRLA, EOMI, Normocephalic Oral: Moist Mucosa Neck: Supple Lungs: Clear to auscultation, Normal air movement Cardiovascular: Regular rate, Regular Rhythm, Normal S1, Normal S2, No murmurs Abdomen: Bowel Sounds Present, Soft, Non Tender, Non-Distended, No Hepato- splenomegaly Extremities: No edema Skin: No rashes, No breakdown Musculoskeletal: No Tenderness to Palpation of Joints or Extremities Lymphatic: No Cervical, Supraclavicular, or Inguinal Adenopathy Neurological: Cranial nerves II-XII grossly intact Psych/Mental Status: Normal Affect, Appropriate Vitals/I&O's: Vital Signs Temp Pulse Resp BP Pulse Ox 98.0 F 71 16 109/66 99 10/14/17 10:05 10/14/17 11:00 10/14/17 10:05 10/14/17 10:05 10/14/17 10:05 Oxygen Delivery Method Room Air Weight: 102.9 kg Body Mass Index (BMI) 34.7 Intake and Output for Last 24 Hours 10/12/17 10/13/17 10/14/17 23:59 23:59 23:59 Intake Total 720 / 720 520 / 520 Output Total 1125 / 1125 1400 / 1400 Balance -405 / -405 -880 / -880 Laboratory Results 10/13/17 17:54: POC Glucose 308 H 10/13/17 18:15: Troponin I < 0.015 10/13/17 20:53: Troponin I < 0.015 10/13/17 20:57: POC Glucose 384 H 10/14/17 03:40: Sodium 139, Potassium 3.1 L, Chloride 98, Carbon Dioxide 31.0, Anion Gap 10, BUN 49 H, Creatinine 1.82 H, Estim Creat Clear Calc 38.63, Est GFR (MDRD) Af Amer 48 L, Est GFR (MDRD) Non-Af 40 L, BUN/Creatinine Ratio 26.9 H , Glucose 294 H, Calcium 9.0 10/14/17 03:40: WBC 7.0, RBC 3.84 L, Hgb 11.9 L, Hct 35.5 L, MCV 92.4, MCH 31.0 , MCHC 33.5, RDW 15.3 H, RDW Differential 49.9 H, Plt Count 199, MPV 10.2, Immature Gran % (Auto) 0.400, Neut % (Auto) 68.7, Lymph % (Auto) 19.4, Carson % ( Auto) 8.1, Eos % (Auto) 3.1, Baso % (Auto) 0.3, Absolute Neuts (auto) 4.8, Absolute Lymphs (auto) 1.36, Total Counted Not Reportable 10/14/17 03:40: PT 13.1, INR 1.0, APTT 25.2 10/14/17 06:44: POC Glucose 291 H 10/14/17 11:15: POC Glucose 389 H Current Medications Acetaminophen (Tylenol) 650 mg PO Q6H PRN PRN PRN Reason: Mild Pain (1-3)/Temp > 100.7 F Last Admin: 10/14/17 12:06 Dose: 650 mg Aspirin (Aspirin, Baby) 81 mg PO QHS [facility] Last Admin: 10/13/17 21:01 Dose: 81 mg Atorvastatin Calcium (Lipitor) 80 mg PO QHS [facility] Last Admin: 10/13/17 21:01 Dose: 80 mg Bisacodyl (Dulcolax) 5 mg PO DAILY PRN PRN PRN Reason: Constipation Carvedilol (Coreg) 3.125 mg PO BID [facility] Last Admin: 10/14/17 10:09 Dose: Not Given Cholecalcifer[facility] ([facility]itamin [facility]) [facility] Admin: 10/14/17 08:52 Dose: 1,000 unit Clopidogrel Bisulfate (Plavix) 75 mg PO DAILY [facility] Last Admin: 10/14/17 10:08 Dose: 75 mg Dextrose (D50w Syringe) 0 gm IV X1 PRN; Protocol PRN Reason: Hypoglycemia Docusate Sodium (Colace Syrup) 50 mg PO BID [facility] Last Admin: 10/14/17 10:08 Dose: 50 mg Duloxetine HCl (Cymbalta) 60 mg PO DAILY [facility] Last Admin: 10/14/17 10:08 Dose: 60 mg Ferrous Sulfate (Ferrous Sulfate) [facility] Last Admin: 10/14/17 08:52 Dose: 325 mg Furosemide (Lasix) 40 mg PO BIDLX [facility] Last Admin: 10/14/17 10:08 Dose: 40 mg Gabapentin (Neurontin) 600 [facility] Last Admin: 10/14/17 12:02 Dose: 600 mg Glucagon () 1 mg IM .X1 PRN PRN Reason: Hypoglycemia Heparin Sodium (Porcine) (Heparin Na) 5,000 unit SC Q12 [facility] Last Admin: 10/14/17 10:08 Dose: 5,000 unit Insulin Glargine (Lantus ([facility])) 55 units SC BID [facility] Last Admin: 10/14/17 08:52 Dose: 55 units Insulin Human Lispro (Humalog Kwikpen ([facility])) 0 unit SQ ACHS [facility] PRN Reason: Protocol Last Admin: 10/14/17 11:17 Dose: 4 units Magnesium Hydroxide (Milk Of Magnesia) 30 ml PO DAILY PRN PRN Reason: Constipation Magnesium Oxide (Mag-Ox 400) [facility] Last Admin: 10/14/17 08:52 Dose: 400 mg Multivitamins (Multivitamin) 1 tablet [facility] Last Admin: 10/14/17 08:52 Dose: 1 tablet Nitroglycerin (Nitrostat) 0.4 mg SUBLINGUAL Q5M PRN PRN Reason: Chest Pain Ondansetron HCl (Zofran) 4 mg IV Q8H PRN PRN PRN Reason: NAUSEA Pantoprazole Sodium (Protonix) 40 mg PO BID [facility] Last Admin: 10/14/17 10:08 Dose: 40 mg Potassium Chloride (K-Dur) [facility] meq [facility] Last Admin: 10/14/17 08:52 Dose: 20 meq Psyllium Hydrophilic Mucilloid (Metamucil) 1 packet PO DAILY PRN PRN PRN Reason: CONSTIPATION Sodium Chloride () 5 - 30 ml IV UD PRN PRN Reason: SALINE FLUSH Trazodone HCl (Desyrel) 50 mg PO QHS [facility] Last Admin: 10/13/17 21:01 Dose: 50 mg Medical Necessity - Tobacco Use Smoking Status: Never smoker Tobacco Use: Non-smoker Assessment/Plan All Active Problems (Last Reviewed 07/23/17 @ 12:50 by Stephania Mike) Chest pain (Acute) Hypoxemia (Acute) Abnormal pulmonary function test (Acute) Dyspnea (Acute) Anemia (Acute) Ventricular tachycardia (Acute) Bradycardia (Acute) Metabolic acidosis (Acute) Cardiogenic shock (Acute) Cardiac arrest (Acute) Hypokalemia (Acute) Hyponatremia (Acute) LIBRADO (acute kidney injury) (Acute) Uncontrolled type 2 DM with hyperosmolar nonketotic hyperglycemia (Acute) Acute on chronic renal failure (Resolved) Cellulitis of left leg (Resolved) Cellulitis of right leg (Resolved) Chest pain (Resolved) Hypotension (Resolved) 67-year-old male with past medical history of CAD status post stent, chronic diastolic CHF, hypertension, type II DM, CKD comes in with complaints of chest pain, shortness of breath that has been going on for about 2 days associated with dizziness today. 1. Chest pain, atypical, in a patient with known cardiovascular risk factors, no events on telemetry, denies any chest pain now, troponins have been negative , On aspirin, statin, beta-james, Plavix, will get a stress test in the morning. 2. Hypokalemia, replace, will recheck in a.m. 3. Hypertension, controlled, continue home regimen 4. Type II DM, blood sugars are uncontrolled, will keep same regimen as patient continue on home insulin regimen, Accu-Cheks with insulin sliding scale 5. Hyperlipidemia, on statin 6. CKD stage III, improved, Cr is 1.82 from 1.94, labs in am 7. Chronic diastolic CHF, no overt signs of acute exacerbation now, BnPep is low 8. DVT PPx- Heparin SC Code Visit Inpatient E&M: 03179 Subs Hosp L2
[2017-10-14] MEDS: 0.9% Normal Saline 1,000 ML 75 ML IV (17:20)
[2017-10-14 17:46] LABS: Bedside Glucose 357 mg/dL (70-110)
[2017-10-14] MEDS: Carvedilol 3.125 MG TABLET PO (22:00)
[2017-10-14] MEDS: traZODone 50 MG Tablet PO (22:00)
[2017-10-14] MEDS: Aspirin 81 MG TAB.CHEW PO (22:00)
[2017-10-14] MEDS: Atorvastatin Calcium 80 MG Tablet PO (22:00)
[2017-10-14 22:26] LABS: Bedside Glucose 310 mg/dL (70-110)
[2017-10-15 03:00] VITALS: PULSE 62
[2017-10-15 04:00] VITALS: BP 112/55; PULSE 66; RESP 18; TEMP 36.7; O2SAT 98
[2017-10-15 05:54] LABS: Absolute Lymphocyte Count 1.43 X10^3/ul (0.83-4.51); Absolute Neutrophil Count 5.3 X10^3/uL (2.0-7.7); Basophil# 0.02 X10^3/uL; Basophil% 0.3 % (0-1); Eosinophils% 2.7 % (0-5); Hematocrit 35.4 % (40-54); Lymphocyte # 1.43 X10^3/ul (4.0); Lymphocyte % 19.1 % (19-41); Mean Corp Hgb Conc 33.9 g/gl (32-36); Mean Corpuscular Hgb 31.5 pg (27.0-32.0); Mean Corpuscular Volume 92.9 fL (80-94); Mean Platelet Vol. 10.4 fl (6.2-12.0); Monocyte# 0.56 X10^3/uL; Monocyte% 7.5 % (0-10); Neutrophil # 5.25 X10^3/uL (2.7-7.7); Neutrophil % 70.1 % (47-70); Platelet Count 205 K/mm3 (150-450); RBC Distribution Width CV 15.1 % (11.6-14.6); RBC Distribution Width SD 49.3 fl (35.1-43.9); Red Blood Count 3.81 M/mm3 (4.6-6.2); White Blood Count 7.5 K/mm3 (4.4-11.0)
--- NOTE | 2017-10-15 05:55 | EKG12_ITS ---
Test Reason : MORNING EKG Blood Pressure : / mmHG Vent. Rate : 065 BPM Atrial Rate : 065 BPM P-R Int : 224 ms QRS Dur : 124 ms QT Int : 476 ms P-R-T Axes : 083 102 057 degrees QTc Int : 495 ms Sinus rhythm with 1st degree A-V block Low voltage QRS (limb leads) Nonspecific intraventricular conduction delay Confirmed by MYRA CULLEN, LESLI ([id number]), deputy editor in chief MARLON TRUJILLO ([id number] on 10/16/2017 2:18:56 PM Referred By: MAHESH Confirmed By:LESLI RENTERIA MD
[2017-10-15] MEDS: Clopidogrel Bisulfate 75 MG Tablet PO (05:58)
[2017-10-15] MEDS: Aspirin 81 MG TAB.CHEW PO (05:59)
[2017-10-15 06:05] LABS: Anion Gap 10 (5-15); BUN 47 mg/dL (7-18); Calcium,Total 8.9 mg/dL (8.5-10.1); Chloride 101 mmol/L (98-107); Creatinine, Serum 1.68 mg/dL (0.70-1.30); EST Glomerular Filtration Rate 44 mL/min (>60); Est Glom Filt Rate - Afr Amer 53 mL/min (>60); Estimated Creatinine Clearance 41.85 ml/min; Glucose 205 mg/dL (74-106); Potassium 3.2 mmol/L (3.5-5.1); Sodium Level 140 mmol/L (136-145)
[2017-10-15 06:30] LABS: Partial Thromboplast Time 27.1 Seconds (24.1-36.2); Prothrombin Time (Protime)PT. 13.6 SECONDS (11.7-14.9)
[2017-10-15 06:35] LABS: POSITIVE COUNT NO; POSITIVE DIFFERENTIAL NO; POSITIVE MORPHOLOGY NO
[2017-10-15 07:09] VITALS: PULSE 64
[2017-10-15 07:16] LABS: Bedside Glucose 206 mg/dL (70-110)
[2017-10-15 09:20] VITALS: BP 119/63; PULSE 71; RESP 16; TEMP 36.6; O2SAT 99
--- NOTE | 2017-10-15 10:12 | STRESSREP ---
Stress Test Report Date: 10/15/2017 Procedure: Pharmacologic stress nuclear imaging study Indications: Chest pain; CAD; PCI; CABG Consent: Per the patient Procedure: The patient underwent pharmacologic (Regadenoson) evaluation with a peak heart rate of 80 beats per minute (51 predicted maximal heart rate) and a peak blood pressure of 130/72 mmHg. The baseline ECG demonstrated normal sinus rhythm. The peak pharmacologic ECG demonstrated no obvious ECG changes. [There were no cardiac dysrhythmias pretest, during pharmacologic infusion, or recovery]. [There was no complaint of chest discomfort during pharmacologic infusion or recovery]. The examination was discontinued secondary to completion of protocol. Impression: 1. Pharmacologic (Regadenoson) evaluation 2. Peak pharmacologic ECG with no obvious ECG changes. 3. There were no cardiac dysrhythmias pretest, during pharmacologic infusion, or recovery 4. Nuclear images pending Myocardial perfusion imaging study: Technique: The patient was injected with 14.7 millicuries of technetium 99m Cardiolite and subsequently rest SPECT Cardiolite nuclear imaging was obtained in the horizontal long, vertical long, and short axis views. The patient underwent pharmacologic (Regadenoson) evaluation with a peak heart rate of 80 beats per minute (51 % percent predicted maximal heart rate) and a peak blood pressure of 130/72 mmHg. The patient was injected with 44.8 millicuries of technetium 99m Cardiolite and subsequently stress SPECT Cardiolite nuclear imaging was obtained in the horizontal long, vertical long, and short axis views. A gated Cardiolite study at peak stress was obtained. Interpretation: Raw image evaluation demonstrates the appearance of body motion during image acquisition. Rest and stress SPECT Cardiolite nuclear imaging status post realignment, normalization, and attenuation correction demonstrate areas of diminished myocardial perfusion/tracer uptake in portions of the distal anterior, basal to distal inferior, and apical segments without significant change between rest and stress.. There is diminished end systolic thickening and brightening in the aforementioned areas. The gated Cardiolite study demonstrates diminished myocardial thickening and inward wall motion in the aforementioned areas. The reported LVEF is 44 %. Impression: 1. Rest and stress SPECT cardio light nuclear imaging demonstrate myocardial perfusion changes appearing compatible with areas of previous myocardial injury/infarction in portions of the distal anterior, basal to distal inferior, and apical segments without significant change between rest and stress with no myocardial perfusion changes consider diagnostic for associated stress-induced myocardial ischemia. 2. The gated Cardiolite study reports an LVEF of 44 %. This note was generated with [employer] software. It may contain incorrect words, spelling, and punctuation that were not noted in checking the note before signing.
--- NOTE | 2017-10-15 10:17 | STRESSREP_ITS ---
Stress Test Report Date: 10/15/2017 Procedure: Pharmacologic stress nuclear imaging study Indications: Chest pain; CAD; PCI; CABG Consent: Per the patient Procedure: The patient underwent pharmacologic (Regadenoson) evaluation with a peak heart rate of 80 beats per minute (51 predicted maximal heart rate) and a peak blood pressure of 130/72 mmHg. The baseline ECG demonstrated normal sinus rhythm. The peak pharmacologic ECG demonstrated no obvious ECG changes. [There were no cardiac dysrhythmias pretest, during pharmacologic infusion, or recovery]. [There was no complaint of chest discomfort during pharmacologic infusion or recovery]. The examination was discontinued secondary to completion of protocol. Impression: 1. Pharmacologic (Regadenoson) evaluation 2. Peak pharmacologic ECG with no obvious ECG changes. 3. There were no cardiac dysrhythmias pretest, during pharmacologic infusion, or recovery 4. Nuclear images pending Myocardial perfusion imaging study: Technique: The patient was injected with 14.7 millicuries of technetium 99m Cardiolite and subsequently rest SPECT Cardiolite nuclear imaging was obtained in the horizontal long, vertical long, and short axis views. The patient underwent pharmacologic (Regadenoson) evaluation with a peak heart rate of 80 beats per minute (51 % percent predicted maximal heart rate) and a peak blood pressure of 130/72 mmHg. The patient was injected with 44.8 millicuries of technetium 99m Cardiolite and subsequently stress SPECT Cardiolite nuclear imaging was obtained in the horizontal long, vertical long, and short axis views. A gated Cardiolite study at peak stress was obtained. Interpretation: Raw image evaluation demonstrates the appearance of body motion during image acquisition. Rest and stress SPECT Cardiolite nuclear imaging status post realignment, normalization, and attenuation correction demonstrate areas of diminished myocardial perfusion/tracer uptake in portions of the distal anterior , basal to distal inferior, and apical segments without significant change between rest and stress.. There is diminished end systolic thickening and brightening in the aforementioned areas. The gated Cardiolite study demonstrates diminished myocardial thickening and inward wall motion in the aforementioned areas. The reported LVEF is 44 %. Impression: 1. Rest and stress SPECT cardio light nuclear imaging demonstrate myocardial perfusion changes appearing compatible with areas of previous myocardial injury/ infarction in portions of the distal anterior, basal to distal inferior, and apical segments without significant change between rest and stress with no myocardial perfusion changes consider diagnostic for associated stress-induced myocardial ischemia. 2. The gated Cardiolite study reports an LVEF of 44 %. This note was generated with [employer] software. It may contain incorrect words, spelling, and punctuation that were not noted in checking the note before signing.
--- NOTE | 2017-10-15 11:27 | PCM.DC ---
- Discharge Diagnoses Current Active Problems: Current Active and Chronic Problems (Last Reviewed 07/23/17 @ 12:50 by Stephania Mike) Chest pain (Acute) Reason(s) for Visit for Discharge Instructions: Chest pain, shortness of breath You will use the following diet at home:: Calorie/Carbohydrate Controlled (specify 1200, 1400, etc), Cardiac Your food should be the consistency of: Regular Your liquids should be the consistency of: Regular/Thin Discharge Activity: Return to Normal Activity Additional Instructions: Continue to take all your medications as prescribed. Continue on your usual home insulin with ISS per blood glucometer reading. You need to repeat blood work in 3 days. You need to wear your stockings every day; elevate your legs on pillows when sleeping. Watch out for redness and increased drainage from your leg ulcers. Let your PCP know if the ulcers get worse. Weigh yourself daily. Allergies/Adverse Reactions: Allergies lisinopril Allergy (Verified 10/13/17 14:28) Other COUGH Medications to take at Discharge Atorvastatin Calcium [Lipitor] 80 mg PO QHS 01/15/16 Cholecalciferol (VIT D3) [Vitamin D3] 1,000 unit PO DAILY 01/15/16 Magnesium Oxide 400 mg PO BID 01/15/16 Multivitamins,Therapeutic [Multivitamin] 1 tab PO DAILY 01/15/16 Insulin Glargine,Hum.rec.anlog [Lantus] 55 unit SQ BID 11/02/16 Nitroglycerin [Nitrostat] 0.4 mg SUBLINGUAL Q5M PRN 11/02/16 Duloxetine Hcl [Cymbalta] 60 mg PO DAILY cap 11/16/16 Carvedilol [Coreg (Beta Matthew)] 3.125 mg PO BID #60 tab 11/22/16 Pantoprazole Sodium [Protonix] 40 mg PO BID #60 tab 11/22/16 Gabapentin [Neurontin] 600 mg PO 4X/DAY 11/26/16 Humalog See Protocol SC 4X/DAY 11/26/16 Clopidogrel Bisulfate [Plavix] 75 mg PO DAILY #30 tab 11/30/16 traZODone [Desyrel] 50 mg PO QHS #30 tab 11/30/16 Iron 65 mg PO BID 03/14/17 furosemide 40 mg tablet 40 mg PO BID tab 07/23/17 potassium chloride ER 20 mEq tablet,extended release(part/cryst) 20 meq PO BID tab 07/23/17 Aspirin [Aspirin, Baby] 81 mg PO QHS 10/13/17 Docusate Sodium [Stool Softener] 50 mg PO BID 10/13/17 Primary Care Physician: Jelena Huddleston MD [Primary Care Provider] - Please follow up with your Primary Care Physician in: within 2 weeks Test Results: Test results from this visit will be discussed in further detail at your follow-up appointment, if applicable. Please Follow Up With: Humza Whitney, MATERIALS SUPERVISOR-C Please Follow Up With: Mckinley Sanders MD When: as scheduled 10/31/17 Proposed Discharge Date: 10/15/17
--- NOTE | 2017-10-15 11:32 | DCINST_ITS ---
- Discharge Diagnoses Current Active Problems: Current Active and Chronic Problems (Last Reviewed 07/23/17 @ 12:50 by Stephania Mike) Chest pain (Acute) Reason(s) for Visit for Discharge Instructions: Chest pain, shortness of breath You will use the following diet at home:: Calorie/Carbohydrate Controlled ( specify 1200, 1400, etc), Cardiac Your food should be the consistency of: Regular Your liquids should be the consistency of: Regular/Thin Discharge Activity: Return to Normal Activity Additional Instructions: Continue to take all your medications as prescribed. Continue on your usual home insulin with ISS per blood glucometer reading. You need to repeat blood work in 3 days. You need to wear your stockings every day ; elevate your legs on pillows when sleeping. Watch out for redness and increased drainage from your leg ulcers. Let your PCP know if the ulcers get worse. Weigh yourself daily. Allergies/Adverse Reactions: Allergies lisinopril Allergy (Verified 10/13/17 14:28) Other COUGH Medications to take at Discharge Atorvastatin Calcium [Lipitor] 80 mg PO QHS 01/15/16 Cholecalciferol (VIT D3) [Vitamin D3] 1,000 unit PO DAILY 01/15/16 Magnesium Oxide 400 mg PO BID 01/15/16 Multivitamins,Therapeutic [Multivitamin] 1 tab PO DAILY 01/15/16 Insulin Glargine,Hum.rec.anlog [Lantus] 55 unit SQ BID 11/02/16 Nitroglycerin [Nitrostat] 0.4 mg SUBLINGUAL Q5M PRN 11/02/16 Duloxetine Hcl [Cymbalta] 60 mg PO DAILY cap 11/16/16 Carvedilol [Coreg (Beta Matthew)] 3.125 mg PO BID #60 tab 11/22/16 Pantoprazole Sodium [Protonix] 40 mg PO BID #60 tab 11/22/16 Gabapentin [Neurontin] 600 mg PO 4X/DAY 11/26/16 Humalog See Protocol SC 4X/DAY 11/26/16 Clopidogrel Bisulfate [Plavix] 75 mg PO DAILY #30 tab 11/30/16 traZODone [Desyrel] 50 mg PO QHS #30 tab 11/30/16 Iron 65 mg PO BID 03/14/17 furosemide 40 mg tablet 40 mg PO BID tab 07/23/17 potassium chloride ER 20 mEq tablet,extended release(part/cryst) 20 meq PO BID tab 07/23/17 Aspirin [Aspirin, Baby] 81 mg PO QHS 10/13/17 Docusate Sodium [Stool Softener] 50 mg PO BID 10/13/17 Primary Care Physician: Jelena Huddleston MD [Primary Care Provider] - Please follow up with your Primary Care Physician in: within 2 weeks Test Results: Test results from this visit will be discussed in further detail at your follow- up appointment, if applicable. Please Follow Up With: Humza Whitney, SLEEVE SETTER-C Please Follow Up With: Mckinley Sanders MD When: as scheduled 10/31/17 Proposed Discharge Date: 10/15/17
--- NOTE | 2017-10-15 11:33 | DS.PCM_ITS ---
Discharge Date and Diagnosis Date of Admission: 10/13/17 Date of Discharge: 10/15/17 - Primary Discharge Diagnosis Active and Suspected Problems (Last Reviewed 07/23/17 @ 12:50 by Stephania Mike) Chest pain (Acute) LIBRADO on CKD stage 3, POA Hypokalemia Hyperglycemia in a known DM Bilateral leg ulcers, venous stasis ulcers, chronic, present on admission - Secondary Discharge Diagnosis Chronic Problems (Last Reviewed 07/23/17 @ 12:50 by Stephania Mike) Chronic diastolic (congestive) heart failure (Chronic) History of coronary artery stent placement (Chronic ~11/02/16) [id number] RCA with 3.0 x 16 Promus 11/02/16 H/O coronary artery bypass surgery (Chronic ~2011) CABG x 2 FUENTES-LAD, SVG-OM 2011 Atherosclerosis of coronary artery of [place] heart without angina pectoris ( Chronic) [id number] RCA with 3.0 x 16 Promus 11/02/16 CABG x 2 FUENTES-LAD, SVG-OM 2011 ZHAO (dyspnea on exertion) (Chronic) Chronic kidney disease (Chronic) PAOD (peripheral arterial occlusive disease) (Chronic) Venous insufficiency (Chronic) Depression (Chronic) Neuropathic pain (Chronic) Obstructive sleep apnea (Chronic) DM (diabetes mellitus), type 2, uncontrolled (Chronic) STEMI (ST elevation myocardial infarction) (Chronic) Diabetes mellitus (Chronic) Insulin-dependent Chronic kidney disease, stage 3 (Chronic) Diabetic nephropathy Iron deficiency anemia (Chronic) Anemia of chronic disease (Chronic) Hyperlipidemia (Chronic) Hypertension (Chronic) Open wound of knee, leg, and ankle, complicated (Chronic) Lymphedema (Chronic) Bilateral Venous insufficiency of both lower extremities (Chronic) Hospital Course and Treatment Imaging Results: 10/15/17 05:55 Nuclear Stress Test - Chemical [NM] Routine Operations: None Procedures: Stress test Summary of Care Provided: 67-year-old male with past medical history of CAD status post stent, chronic diastolic CHF, hypertension, type II DM, CKD comes in with complaints of chest pain, shortness of breath that has been going on for about 2 days associated with dizziness today. 1. Chest pain, atypical, no acute events on EKG, troponins were negative, stress test was negative for any acute ischemia, showed old ischemic changes 2. Hypokalemia, replaced 3. Hypertension, controlled 4. Type II DM, on insulin 5. Hyperlipidemia, on statin 6. LIBRADO on CKD stage III, ipresent on admission, improved 7. Chronic diastolic CHF, no overt signs of acute exacerbation 8. Bilateral lower leg ulcers, venous, on chronic venous stasis dermatitis, no signs of cellulitis, advised to keep wound clean in with ASYA hoses, need to let his physician know if there is any redness or fever or chills and follow-up with the wound center. Discharge Diet: Low fat/ Low Cholesterol, 2200 Calorie Control Diet, 2000 mg Sodium Diet Discharge Activity: Return to Normal Activity Home Medications: Medications to take at Discharge Atorvastatin Calcium [Lipitor] 80 mg PO QHS 01/15/16 Cholecalciferol (VIT D3) [Vitamin D3] 1,000 unit PO DAILY 01/15/16 Magnesium Oxide 400 mg PO BID 01/15/16 Multivitamins,Therapeutic [Multivitamin] 1 tab PO DAILY 01/15/16 Insulin Glargine,Hum.rec.anlog [Lantus] 55 unit SQ BID 11/02/16 Nitroglycerin [Nitrostat] 0.4 mg SUBLINGUAL Q5M PRN 11/02/16 Duloxetine Hcl [Cymbalta] 60 mg PO DAILY cap 11/16/16 Carvedilol [Coreg (Beta Matthew)] 3.125 mg PO BID #60 tab 11/22/16 Pantoprazole Sodium [Protonix] 40 mg PO BID #60 tab 11/22/16 Gabapentin [Neurontin] 600 mg PO 4X/DAY 11/26/16 Clopidogrel Bisulfate [Plavix] 75 mg PO DAILY #30 tab 11/30/16 traZODone [Desyrel] 50 mg PO QHS #30 tab 11/30/16 Iron 65 mg PO BID 03/14/17 furosemide 40 mg tablet 40 mg PO BID tab 07/23/17 potassium chloride ER 20 mEq tablet,extended release(part/cryst) 20 meq PO BID tab 07/23/17 Aspirin [Aspirin, Baby] 81 mg PO QHS 10/13/17 Docusate Sodium [Stool Softener] 50 mg PO BID 10/13/17 Other Amb Orders: Basic Metabolic Profile (BMP) Location: Laboratory Primary Care Physician: Jelena Huddleston MD [Primary Care Provider] - Please follow up with your Primary Care Physician in: within 2 weeks Please Follow Up With: Roof,Humza H, WEAPONS SYSTEM INSTRUMENT MECHANIC-C Please Follow Up With: Mckinley Sanders MD When: as scheduled 10/31/17 Disposition: Home Minutes spent on discharge:: 35 Patient Condition:: Stable Medical Necessity - Tobacco Use Smoking Status: Never smoker Tobacco Use: Non-smoker Meaningful Use Info Meaningful Use Diagnoses (Choose all that apply): None applicable Code Visit Inpatient E&M: 08493 Disch Hosp
[2017-10-15 11:55] LABS: Bedside Glucose 262 mg/dL (70-110)
[2017-10-15] MEDS: Insulin Lispro 100 UNIT/ML INSULN.PEN SQ (11:56)
== END 2017-10-15 11:32 | disposition home or self-care (01) ==
LOC: ED 16:21 → PCU 17:04
PROVIDERS: Admitting Provider Internal Medicine; Emergency Provider Emergency Medicine; Family Provider Family Medicine; PCP Family Medicine; Visit Provider Internal Medicine
DX: R07.89 Other chest pain (principal); E11.65 Type 2 diabetes mellitus with hyperglycemia; E11.21 Type 2 diabetes mellitus with diabetic nephropathy; E11.22 Type 2 diabetes mellitus with diabetic chronic kidney disease; I13.0 Hypertensive heart and chronic kidney disease with heart failure and stage 1 through stage 4 chronic kidney disease, or unspecified chronic kidney disease; N18.3 Chronic kidney disease, stage 3 (moderate); I50.33 Acute on chronic diastolic (congestive) heart failure; E78.5 Hyperlipidemia, unspecified; E87.6 Hypokalemia; I25.2 Old myocardial infarction; I25.10 Atherosclerotic heart disease of native coronary artery without angina pectoris; M79.602 Pain in left arm; M54.2 Cervicalgia; I77.9 Disorder of arteries and arterioles, unspecified; G47.33 Obstructive sleep apnea (adult) (pediatric); F32.9 Major depressive disorder, single episode, unspecified; I50.9 Heart failure, unspecified; D63.8 Anemia in other chronic diseases classified elsewhere; M19.90 Unspecified osteoarthritis, unspecified site; E11.622 Type 2 diabetes mellitus with other skin ulcer; I83.018 Varicose veins of right lower extremity with ulcer other part of lower leg; I83.028 Varicose veins of left lower extremity with ulcer other part of lower leg; L97.819 Non-pressure chronic ulcer of other part of right lower leg with unspecified severity; L97.829 Non-pressure chronic ulcer of other part of left lower leg with unspecified severity; E11.51 Type 2 diabetes mellitus with diabetic peripheral angiopathy without gangrene; Z86.74 Personal history of sudden cardiac arrest; Z79.899 Other long term (current) drug therapy; Z79.4 Long term (current) use of insulin; Z79.02 Long term (current) use of antithrombotics/antiplatelets; Z95.1 Presence of aortocoronary bypass graft; K21.9 Gastro-esophageal reflux disease without esophagitis
CPT/HCPCS: 36415; 71046; 78452; 80048; 82962; 83880; 84484; 85025; 85379; 85610; 85730; 93005; 93017; 96360; 96361; 96372; 99218; 99283; A9500; J7030; A4216; G0378; J2785

== ENCOUNTER → 2017-11-12 08:43 | Outpatient (CLI) | payer MEDICARE, SELFPAY ==
[2017-11-12 09:49] VITALS: PULSE 70; PULSE 73; PULSE 75; PULSE 78; PULSE 80; PULSE 81; PULSE 82; O2SAT 90; O2SAT 92; O2SAT 95; O2SAT 96; O2SAT 97
--- NOTE | 2017-11-12 13:24 | PCM.PSN.6M ---
PSN 6 Minute Walk Test - 6 Minute Walk Test 6 Minute Walk Test: 6 Minute Walk Test PSN:6-Minute Walk Test Start: 11/12/17 09:49 Freq: Status: Active Protocol: RESP.6MINW Document 11/12/17 09:49 HALIMA (Rec: 11/12/17 09:51 HALIMA [id number]) 6 Minute Walk Test Date Performed 11/12/17 Time Performed 09:20 Height 5 ft 8 in Weight: 102.058 kg Weight in Pounds 225.[address]: Alex Brower Assistive device used: Cane Pre-test Oxygen Delivery Method Room Air Pulse Ox (%) 95 Pulse Rate (60-100 beats/min) 70 Dyspnea Johanna Scale (0-10) 0 Exertion Johanna Scale (6-20) 6 1st minute Oxygen Delivery Method Room Air Pulse Ox (%) 96 Pulse Rate (60-100 beats/min) 75 2nd minute Oxygen Delivery Method Room Air Pulse Ox (%) 97 Pulse Rate (60-100 beats/min) 78 3rd minute Oxygen Delivery Method Room Air Pulse Ox (%) 92 Pulse Rate (60-100 beats/min) 80 4th minute Oxygen Delivery Method Room Air Pulse Ox (%) 90 Pulse Rate (60-100 beats/min) 81 5th minute Oxygen Delivery Method Room Air Pulse Ox (%) 90 Pulse Rate (60-100 beats/min) 81 6th minute Oxygen Delivery Method Room Air Pulse Ox (%) 90 Pulse Rate (60-100 beats/min) 82 Dyspnea Johanna Scale (0-10) 1 Exertion Johanna Scale (6-20) 14 Post-test Oxygen Delivery Method Room Air Pulse Ox (%) 97 Pulse Rate (60-100 beats/min) 73 Full Laps Walked 12 Partial Lap, Number of Tiles Walked 0 Total Distance Walked (ft) 708 - Interpretation Interpretation: The patient was able to ambulate 708 feet over the course of 6 minutes on room air with the assistance of a cane, but no breaks. Patient did experience significant desaturation as low as 90%, but no tachycardia was noted. These findings are consistent with a respiratory limitation exercise tolerance. - Recommendations Recommendations: No supplemental oxygen is indicated at this time. However, patient will need to be followed closely given level of desaturation.
== END ==
LOC: PSN 08:44
PROVIDERS: Family Provider Family Medicine; PCP Family Medicine; Visit Provider Internal Medicine Critical Care Medicine
DX: R06.09 Other forms of dyspnea (principal)
CPT/HCPCS: 94618

== ENCOUNTER → 2017-11-13 08:57 | Outpatient (CLI) | payer MEDICARE, SELFPAY ==
--- NOTE | 2017-11-13 10:34 | PFTCOMP ---
COMPLETE PULMONARY FUNCTION TEST INTERPRETATION Brief HPI: Patient is a 67 year old male, currently under the care of myself, who presents to [facility] for complete pulmonary function tests secondary to diagnosis of dyspnea on exertion. Respiratory therapist reports good effort and reproducible results. Interpretation: Forced expiration spirometry shows no large airways obstructive ventilatory defect with an FEV1 of 63% predicted. There is no significant bronchodilator response by ATS criteria. Spirograms are of good quality and plateau slowly, indicating slowly emptying areas of the lungs. The respiratory flow volume loop shows decreased expiratory flow rates at high lung volumes consistent with small airways obstruction. Lung volumes by body plethysmography show a decreased total lung capacity at 4.72 L, 78% predicted. All other lung volumes are reduced symmetrically. Diffusion capacity by carbon monoxide is decreased at 50% predicted. The airway resistance is normal. Compared to previous pulmonary function tests from 12/02/2016, there has been a significant improvement in FVC, FEV1, TLC and DLCO by 20%, 26%, 14% and 10% respectively. Impression: Mild restrictive ventilatory defect with a symmetric reduction diffusing capacity consistent with interstitial lung disease. Patient has had significant improvement compared to previous testing.
== END ==
LOC: PSN 08:57
PROVIDERS: Family Provider Family Medicine; PCP Family Medicine; Visit Provider Internal Medicine Critical Care Medicine
DX: R06.09 Other forms of dyspnea (principal)
CPT/HCPCS: 94060; 94726; 94729

== ENCOUNTER → 2017-11-28 14:02 | Outpatient (CLI) | payer MEDICARE, SELFPAY | PROVIDERS: Family Provider Family Medicine; PCP Family Medicine; Visit Provider Nurse Practitioner Acute Care | DX: R07.9 Chest pain, unspecified (principal); R06.09 Other forms of dyspnea | CPT/HCPCS: 93306; Q9957; A4216; C8929 ==

== ENCOUNTER 2017-12-01 17:57 | Observation (INO) | payer MEDICARE, SELFPAY ==
[2017-12-01] VITALS (10 sets, daily range): BP systolic 108–130; BP diastolic 48–70; PULSE 69–81; RESP 18–19; TEMP 36.7; O2SAT 86–98; BMI 36.7; BMI 35.4
--- NOTE | 2017-12-01 18:30 | EKG12_ITS ---
Test Reason : SOB Blood Pressure : / mmHG Vent. Rate : 075 BPM Atrial Rate : 075 BPM P-R Int : 228 ms QRS Dur : 114 ms QT Int : 432 ms P-R-T Axes : 023 068 033 degrees QTc Int : 482 ms Sinus rhythm with 1st degree A-V block Low voltage QRS Cannot rule out Anterior infarct , age undetermined Abnormal ECG Confirmed by SUDARSHAN CULLEN, TANVIR ([id number]), mapping editor MARLON TRUJILLO ([id number]) on 12/04/2017 1:09:23 PM Referred By: Niyah Zambrano Confirmed By:TANVIR HEATON MD
[2017-12-01 18:59] LABS: Anion Gap 9 (5-15); BUN 25 mg/dL (7-18); Calcium,Total 8.9 mg/dL (8.5-10.1); Chloride 106 mmol/L (98-107); Creatinine, Serum 1.93 mg/dL (0.70-1.30); EST Glomerular Filtration Rate 37 mL/min (>60); Est Glom Filt Rate - Afr Amer 45 mL/min (>60); Estimated Creatinine Clearance 36.42 ml/min; Glucose 319 mg/dL (74-106); Potassium 4.5 mmol/L (3.5-5.1); Sodium Level 136 mmol/L (136-145)
[2017-12-01 19:01] LABS: Absolute Lymphocyte Count 0.97 X10^3/ul (0.83-4.51); Basophil# 0.02 X10^3/uL; Basophil% 0.2 % (0-1); Eosinophil# 0.23 X10^3/uL; Eosinophils% 2.7 % (0-5); Hematocrit 32.8 % (40-54); Hemoglobin 11.1 g/dl (13.0-16.5); Lymphocyte # 0.97 X10^3/ul (4.0); Lymphocyte % 11.2 % (19-41); Mean Corp Hgb Conc 33.8 g/gl (32-36); Mean Corpuscular Volume 94.5 fL (80-94); Monocyte# 0.41 X10^3/uL; Monocyte% 4.7 % (0-10); Platelet Count 184 K/mm3 (150-450); RBC Distribution Width SD 49.3 fl (35.1-43.9); Red Blood Count 3.47 M/mm3 (4.6-6.2); White Blood Count 8.7 K/mm3 (4.4-11.0)
[2017-12-01 19:02] LABS: POSITIVE COUNT NO; POSITIVE DIFFERENTIAL NO; POSITIVE MORPHOLOGY NO
[2017-12-01 19:35] LABS: BNP,B-Type NATRIURETIC PEPTIDE 380.5 pg/mL (0-100)
--- NOTE | 2017-12-01 19:44 | ED.VISSUMM ---
- ER Visit Summary Date of Service: 12/01/17 Chief Complaint: I am having congestive heart failure. History of Present Illness: The patient is a 67 M who presents with chief complaint of congestive heart failure. He states over the last 2-3 days he has been increasingly short of breath particularly with exertion. He also reports orthopnea. He states while at rest it is only moderate but becomes severe with exertion. He states he did take an extra Lasix but really has not had any change in symptoms. He states that his legs seem to be a little puffy. He also reports weight gain. He reports intermittent cough but no sputum. No URI-like illness such as congestion rhinorrhea sore throat. No fevers. No chest pain. Physical Examination: Afebrile vitals notable for pulse ox of 86% on room air after ambulating to triage in the room. Patient is in no distress. Heart regular rate and rhythm Patient has some mild bibasilar rales I do not appreciate wheezing or rhonchi he is not in distress Abdomen soft Patient has chronic venous stasis changes I really do not appreciate peripheral edema Alert Test Results: EKG shows sinus rhythm at a rate of 75 with a first-degree AV block. Chest x-ray shows no acute findings. Labs notable for hemoglobin 11.1. Creatinine is 1.93. [employer] is 380 which is increased from prior labs although he has been higher in the past. Troponin is negative. Emergency Department Course and Treatment: Patient does not have any overt signs of pulmonary edema. However I did appreciate some mild rales on exam and his history and description of symptoms are suggestive of congestive heart failure. I do feel that he will need admitted for further evaluation. I did give additional IV Lasix here. To be discussed with the hospitalist and admitted. Treatment Plan: [] Disposition: Admit Impression: Shortness of breath on exertion Hypoxia CHF This note was generated with [employer] dictation software. It may contain incorrect words, spelling, and punctuation that were not noted in review of the chart prior to signing ED Disposition - Plan for ED Patient: Chief Complaint: Shortness of Breath Referrals: Jelena Huddleston MD [Primary Care Provider] -
[2017-12-01] MEDS: Furosemide 40 MG/4 ML Vial IV (19:57)
--- NOTE | 2017-12-01 20:26 | PCM.HP.STD ---
Problem List (1) Acute diastolic heart failure Status: Acute (2) Chronic diastolic (congestive) heart failure Status: Chronic (3) History of coronary artery stent placement Status: Chronic Comment: [id number] RCA with 3.0 x 16 Promus 11/02/16 (4) H/O coronary artery bypass surgery Status: Chronic Comment: CABG x 2 FUENTES-LAD, SVG-OM 2011 (5) Atherosclerosis of coronary artery of [place] heart without angina pectoris Status: Chronic Comment: [id number] RCA with 3.0 x 16 Promus 11/02/16 CABG x 2 FUENTES-LAD, SVG-OM 2011 (6) Hypoxemia Status: Acute (7) Abnormal pulmonary function test Status: Acute (8) ZHAO (dyspnea on exertion) Status: Chronic (9) Cardiac arrest Status: Acute (10) Hypokalemia Status: Acute (11) Hyponatremia Status: Acute (12) Anemia of chronic disease Status: Chronic (13) Hyperlipidemia Status: Chronic Qualifiers: Hyperlipidemia type: unspecified Qualified Code(s): E78.5 - Hyperlipidemia, unspecified (14) Hypertension Status: Chronic Qualifiers: Hypertension type: essential hypertension (15) Open wound of knee, leg, and ankle, complicated Status: Chronic Qualifiers: Encounter type: subsequent encounter Laterality: unspecified laterality Qualified Code(s): S81.009D - Unspecified open wound, unspecified knee, subsequent encounter; S81.809D - Unspecified open wound, unspecified lower leg, subsequent encounter; S91.009D - Unspecified open wound, unspecified ankle, subsequent encounter (16) Lymphedema Status: Chronic Comment: Bilateral History of Present Illness Date of Admission: 12/01/17 Chief Complaint: Acute on chronic diastolic heart failure The patient is a 67 year old male chronic diastolic heart failure, CAD s/p stent and CABG, CKD III, and PAD admitted for acute on chronic diastolic heart failure. He has been SOB for the past few days. He also has been noncompliant with his diet, eating mostly fast food. His son is hospitalized after a MVA and he has been visiting his son. Exertion and lying down worsen his SOB. His SOB slightly improves with rest but he still remains SOB. His SOB is severe and constant. He cannot function with his SOB and went to the ED for workup. Despite taking an extra dose of lasix, he did not feel any different. He also has noted slight increase in weight and more edema in his lower extremities. He has a nonproductive cough that has been constant. No fever or chill. No chest pain. Past Medical History Past Medical History (Chronic Problems): Chronic Problems (Last Reviewed 12/02/17 @ 05:09 by Baljinder Alexander MD) Chronic diastolic (congestive) heart failure (Chronic) History of coronary artery stent placement (Chronic ~11/02/16) [id number] RCA with 3.0 x 16 Promus 11/02/16 H/O coronary artery bypass surgery (Chronic ~2011) CABG x 2 FUENTES-LAD, SVG-OM 2011 Atherosclerosis of coronary artery of [place] heart without angina pectoris (Chronic) NUM-BUM-Golm RCA with 3.0 x 16 Promus 11/02/16 CABG x 2 FUENTES-LAD, SVG-OM 2011 ZHAO (dyspnea on exertion) (Chronic) Chronic kidney disease (Chronic) PAOD (peripheral arterial occlusive disease) (Chronic) Venous insufficiency (Chronic) Depression (Chronic) Neuropathic pain (Chronic) Obstructive sleep apnea (Chronic) DM (diabetes mellitus), type 2, uncontrolled (Chronic) STEMI (ST elevation myocardial infarction) (Chronic) Diabetes mellitus (Chronic) Insulin-dependent Chronic kidney disease, stage 3 (Chronic) Diabetic nephropathy Iron deficiency anemia (Chronic) Anemia of chronic disease (Chronic) Hyperlipidemia (Chronic) Hypertension (Chronic) Open wound of knee, leg, and ankle, complicated (Chronic) Lymphedema (Chronic) Bilateral Venous insufficiency of both lower extremities (Chronic) Medical History: Medical History (Last Reviewed 12/02/17 @ 05:09 by Baljinder Alexander MD) Chronic diastolic (congestive) heart failure (Chronic) I50.32 Atherosclerosis of coronary artery of [place] heart without angina pectoris (Chronic) I25.10 LOO-JWG-Oayo RCA with 3.0 x 16 Promus 11/02/16 CABG x 2 FUENTES-LAD, SVG-OM 2011 Hypoxemia (Acute) R09.02 Abnormal pulmonary function test (Acute) R94.2 ZHAO (dyspnea on exertion) (Chronic) R06.09 Chronic kidney disease (Chronic) N18.9 PAOD (peripheral arterial occlusive disease) (Chronic) I77.9 Venous insufficiency (Chronic) Depression (Chronic) F32.9 Neuropathic pain (Chronic) Obstructive sleep apnea (Chronic) G47.33 Dyspnea (Acute) R06.00 Anemia (Acute) D64.9 Ventricular tachycardia (Acute) I47.2 DM (diabetes mellitus), type 2, uncontrolled (Chronic) E11.65 Bradycardia (Acute) R00.1 Metabolic acidosis (Acute) E87.2 Cardiogenic shock (Acute) R57.0 STEMI (ST elevation myocardial infarction) (Chronic) Cardiac arrest (Acute) I46.9 Hypokalemia (Acute) E87.6 Hyponatremia (Acute) E87.1 LIBRADO (acute kidney injury) (Acute) N17.9 Uncontrolled type 2 DM with hyperosmolar nonketotic hyperglycemia (Acute) E11.00 Diabetes mellitus (Chronic) E11.9 Insulin-dependent Chronic kidney disease, stage 3 (Chronic) Diabetic nephropathy Iron deficiency anemia (Chronic) D50.9 Anemia of chronic disease (Chronic) D63.8 Hyperlipidemia (Chronic) E78.5 Hypertension (Chronic) I10 Open wound of knee, leg, and ankle, complicated (Chronic) S81.009A, S81.809A, S91.009A Lymphedema (Chronic) I89.0 Bilateral Venous insufficiency of both lower extremities (Chronic) I87.2 Arthritis M19.90 Chronic congestive heart failure I50.9 Diabetes E11.9 Hypertension I10 Obstructive sleep apnea G47.33 PAD (peripheral artery disease) I73.9 Acute on chronic systolic (congestive) heart failure (Inactive) I50.23 CHF (congestive heart failure) (Inactive) I50.9 Ejection fraction 45% as of December 2014 PAD (peripheral artery disease) (Inactive) I73.9 Allergies lisinopril Allergy (Verified 12/01/17 18:02) Other COUGH Home Medications: Ambulatory Orders Medication Instructions Recorded Atorvastatin Calcium [Lipitor] 80 mg PO QHS 01/15/16 Cholecalciferol (VIT D3) [Vitamin 1,000 unit PO DAILY 01/15/16 D3] Magnesium Oxide 400 mg PO BID 01/15/16 Multivitamins,Therapeutic 1 tab PO DAILY 01/15/16 [Multivitamin] Insulin Glargine,Hum.rec.anlog 55 unit SQ BID 11/02/16 [Lantus] Nitroglycerin [Nitrostat] 0.4 mg SUBLINGUAL Q5M PRN 11/02/16 Duloxetine Hcl [Cymbalta] 60 mg PO DAILY cap 11/16/16 Carvedilol [Coreg (Beta Matthew)] 3.125 mg PO BID #60 tab 11/22/16 Pantoprazole Sodium [Protonix] 40 mg PO BID #60 tab 11/22/16 Gabapentin [Neurontin] 600 mg PO 4X/DAY 11/26/16 Clopidogrel Bisulfate [Plavix] 75 mg PO DAILY #30 tab 11/30/16 traZODone [Desyrel] 50 mg PO QHS #30 tab 11/30/16 Iron 65 mg PO BID 03/14/17 furosemide 40 mg tablet 40 mg PO BID tab 07/23/17 potassium chloride ER 20 mEq 20 meq PO BID tab 07/23/17 tablet,extended release(part/cryst) Aspirin [Aspirin, Baby] 81 mg PO QHS 10/13/17 Docusate Sodium [Stool Softener] 50 mg PO BID 10/13/17 albuterol sulfate HFA 90 2 puff INHALATION Q4H #1 inh 11/20/17 mcg/actuation aerosol inhaler Insulin Lispro [Humalog] unit SQ ACHS 12/01/17 Surgical History: Surgical History (Last Reviewed 12/02/17 @ 05:09 by Baljinder Alexander MD) History of coronary artery stent placement (Chronic) Onset Date: ~11/02/16 Z95.5 TIL-VDZ-Fjpp RCA with 3.0 x 16 Promus 11/02/16 H/O coronary artery bypass surgery (Chronic) Onset Date: ~2011 Z95.1 CABG x 2 FUENTES-LAD, SVG-OM 2011 Coronary bypass graft mechanical complication T82.218A Psychiatric History: No pertinent psych hx Smoking Status: Former smoker - *Family History Maternal Family History: Family History (Last Reviewed 12/02/17 @ 05:09 by Baljinder Alexander MD) Sister CVA (cerebral vascular accident) Father Heart disease Hypertension Diabetes History Items: No pertinent history Paternal Family History: Family History (Last Reviewed 12/02/17 @ 05:09 by Baljinder Alexander MD) Sister CVA (cerebral vascular accident) Father Heart disease Hypertension Diabetes History Items: No pertinent history Review of Systems Constitutional: Denies: Chills, Fever, Weight Change HEENT: Denies: Head Aches, Sinus Congestion, Sinus Drainage Cardiovascular: Denies: Chest Pain, Palpitations Respiratory: Reports: Cough, Shortness of Breath. Denies: Shortness of breath at rest, Sputum production Gastrointestinal: Denies: Abdominal Pain, Nausea, Vomiting Genitourinary: Denies: Dysuria Musculoskeletal: Denies: Joint Pain, Joint Tenderness Skin: Denies: Rash, Wounds Neurological: Denies: Numbness, Tingling, Focal weakness Psychiatric: Denies: Anxiety, Depression, Homicidal Ideations, Suicidal Ideations Hematologic/ Lymphatic: Denies: Easy Bruising, Easy Bleeding VTE Information - Inpt Only VTE Present on Admission: No VTE Mechan Device Prophylaxis: SCD's VTE Pharm Prophylaxis ordered?: Yes Patient Problems: Active and Suspected Problems (Last Reviewed 12/02/17 @ 05:09 by Baljinder Alexander MD) Acute diastolic heart failure (Acute) - Physical Exam General: Alert, Oriented x3, Cooperative HEENT: Atraumatic, PERRLA, EOMI, Normocephalic Neck: Supple, No JVD, Negative Carotid Bruits Lungs: Diminished, Rales Cardiovascular: Regular rate, No murmurs Abdomen: Bowel Sounds Present, Soft, Non Tender Extremities: Capillary Refill Less than 3 Seconds, Edema - 2+ edema Skin: No rashes, No breakdown Musculoskeletal: No Tenderness to Palpation of Joints or Extremities Neurological: Cranial nerves II-XII grossly intact Psych/Mental Status: Normal Affect, Appropriate Vital Signs Temp Pulse Resp BP Pulse Ox 98.0 F 75 19 H 115/48 L 96 12/01/17 17:58 12/01/17 19:52 12/01/17 19:52 12/01/17 19:52 12/01/17 19:52 Assessment/Plan All Active Problems (Last Reviewed 12/02/17 @ 05:09 by Baljinder Alexander MD) Chest pain (Acute) Acute diastolic heart failure (Acute) Hypoxemia (Acute) Abnormal pulmonary function test (Acute) Dyspnea (Acute) Anemia (Acute) Ventricular tachycardia (Acute) Bradycardia (Acute) Metabolic acidosis (Acute) Cardiogenic shock (Acute) Cardiac arrest (Acute) Hypokalemia (Acute) Hyponatremia (Acute) LIBRADO (acute kidney injury) (Acute) Uncontrolled type 2 DM with hyperosmolar nonketotic hyperglycemia (Acute) Acute on chronic renal failure (Resolved) Cellulitis of left leg (Resolved) Cellulitis of right leg (Resolved) Chest pain (Resolved) Hypotension (Resolved) 67 year old male chronic diastolic heart failure, CAD s/p stent and CABG, CKD III, and PAD admitted for acute on chronic diastolic heart failure. 1) Acute on chronic diastolic heart failure: Most likely secondary to noncompliant w/ diet / meds. Pt has been busy caring for hospitalized son after a MVA. Chest xray disclosed no acute findings. BNP 380 ECHO done on 11/28/17 disclosed mild concentric left ventricular hypertrophy. The estimated ejection fraction is 45 %. Stage 2 diastolic dysfunction. There is mild to moderate global hypokinesis of the left ventricle. Will start lasix 40mg IV Q12H. C/w home meds. Trop negative. 2) LIBRADO: Probably cardiorenal. Cr 1.69 -> 1.93 Diuresis. 3) Chronic issues: CAD s/p stent and CABG, CKD III, DMII, LAURA, and PAD Resume home meds. 4) Prophylaxis: SCD / plavix/ASA.
[2017-12-01] MEDS: Acetaminophen 325 MG Tablet 650 MG PO (20:47)
[2017-12-01] MEDS: Gabapentin 600 MG Tablet PO ×2 (20:47→23:07)
--- NOTE | 2017-12-01 20:49 | NURSING ---
Called ED phototypesetting equipment monitor, Liz at this time to confirm Pt okay to come to PCU.
[2017-12-01 23:01] LABS: Bedside Glucose 242 mg/dL (70-110)
[2017-12-01] MEDS: Aspirin 81 MG TAB.CHEW PO (23:07)
[2017-12-01] MEDS: Magnesium Oxide 400 MG Tablet PO (23:07)
[2017-12-01] MEDS: Pantoprazole Sodium 40 MG Tablet PO (23:07)
[2017-12-01] MEDS: traZODone 50 MG Tablet PO (23:07)
[2017-12-01] MEDS: Atorvastatin Calcium 80 MG Tablet PO (23:07)
[2017-12-01] MEDS: Carvedilol 3.125 MG TABLET PO (23:07)
[2017-12-01] MEDS: Docusate Sodium 100 MG/10 ML UDC 50 MG PO (23:09)
[2017-12-02] VITALS (13 sets, daily range): BP systolic 96–140; BP diastolic 52–67; PULSE 60–74; RESP 16–18; TEMP 36.3–36.9; O2SAT 97–99
[2017-12-02] MEDS: Albuterol 2.5 MG/3 ML VIAL.NEB. INHALATION ×3 (07:03→19:46)
[2017-12-02 07:14] LABS: Absolute Lymphocyte Count 1.16 X10^3/ul (0.83-4.51); Basophil# 0.03 X10^3/uL; Basophil% 0.5 % (0-1); Eosinophil# 0.27 X10^3/uL; Eosinophils% 4.6 % (0-5); Hematocrit 32.7 % (40-54); Hemoglobin 10.8 g/dl (13.0-16.5); Lymphocyte # 1.16 X10^3/ul (4.0); Lymphocyte % 19.6 % (19-41); Mean Corpuscular Hgb 31.6 pg (27.0-32.0); Mean Corpuscular Volume 95.6 fL (80-94); Mean Platelet Vol. 10.3 fl (6.2-12.0); Monocyte# 0.46 X10^3/uL; Monocyte% 7.8 % (0-10); Neutrophil # 3.97 X10^3/uL (2.7-7.7); Platelet Count 177 K/mm3 (150-450); RBC Distribution Width CV 15.3 % (11.6-14.6); RBC Distribution Width SD 51.4 fl (35.1-43.9); Red Blood Count 3.42 M/mm3 (4.6-6.2); White Blood Count 5.9 K/mm3 (4.4-11.0)
[2017-12-02 07:15] LABS: POSITIVE COUNT NO; POSITIVE DIFFERENTIAL NO; POSITIVE MORPHOLOGY NO
[2017-12-02 08:04] LABS: Anion Gap 10 (5-15); BUN 23 mg/dL (7-18); BUN/Creat Ratio 13.7 RATIO (10-20); Calcium,Total 8.7 mg/dL (8.5-10.1); Chloride 105 mmol/L (98-107); Cholesterol 86 mg/dL (200); Creatinine, Serum 1.68 mg/dL (0.70-1.30); EST Glomerular Filtration Rate 44 mL/min (>60); Est Glom Filt Rate - Afr Amer 53 mL/min (>60); Estimated Creatinine Clearance 41.85 ml/min; Glucose 172 mg/dL (74-106); High Density Lipoprotein 25 mg/dL; Potassium 3.7 mmol/L (3.5-5.1); Sodium Level 143 mmol/L (136-145); Thyroid Stim Hormone (TSH) 2.34 uIU/mL (0.358-3.74); Triglycerides 118 mg/dL; Very Low Density Lipoprotein 24 mg/dL (5-40)
[2017-12-02 08:11] LABS: BNP,B-Type NATRIURETIC PEPTIDE 296.9 pg/mL (0-100)
[2017-12-02] MEDS: Multivitamins,Therapeutic Tablet 1 TABLET PO (08:51)
[2017-12-02] MEDS: Pantoprazole Sodium 40 MG Tablet PO ×2 (08:51→21:13)
[2017-12-02] MEDS: Ferrous Sulfate 325 MG Tablet PO ×2 (08:51→17:03)
[2017-12-02] MEDS: Carvedilol 3.125 MG TABLET PO ×2 (08:52→21:13)
[2017-12-02] MEDS: Magnesium Oxide 400 MG Tablet PO ×2 (08:52→21:13)
[2017-12-02] MEDS: Gabapentin 600 MG Tablet PO ×4 (08:52→21:13)
[2017-12-02] MEDS: Clopidogrel Bisulfate 75 MG Tablet PO (08:53)
[2017-12-02] MEDS: DULoxetine Hcl 60 MG Capsule PO (08:53)
[2017-12-02] MEDS: Docusate Sodium 100 MG/10 ML UDC 50 MG PO (08:53)
[2017-12-02] MEDS: Furosemide 40 MG/4 ML Vial IV ×2 (08:54→17:03)
[2017-12-02 08:56] LABS: Bedside Glucose 161 mg/dL (70-110)
[2017-12-02 11:21] LABS: Bedside Glucose 302 mg/dL (70-110)
--- NOTE | 2017-12-02 16:28 | PCM.PN.HOSP ---
Patient Problems: Active and Suspected Problems (Last Reviewed 12/02/17 @ 05:09 by Baljinder Alexander MD) Acute diastolic heart failure (Acute) Subjective: Patient seen and examined. Still complains of SOB. Denies chest pain, dizziness Objective: Physical Exam General: Alert, Oriented x3, Cooperative HEENT: Atraumatic, PERRLA, EOMI, Normocephalic Neck: Supple, No JVD, Negative Carotid Bruits Lungs: Diminished, Rales Cardiovascular: Regular rate, No murmurs Abdomen: Bowel Sounds Present, Soft, Non Tender Extremities: Capillary Refill Less than 3 Seconds, Edema - 2+ edema Skin: No rashes, No breakdown Musculoskeletal: No Tenderness to Palpation of Joints or Extremities Neurological: Cranial nerves II-XII grossly intact Psych/Mental Status: Normal Affect, Appropriate Vitals/I&O's: Vital Signs Temp Pulse Resp BP Pulse Ox 98.5 F 73 18 99/54 L 97 12/02/17 15:00 12/02/17 15:10 12/02/17 15:00 12/02/17 15:00 12/02/17 15:00 Oxygen Flow Rate (L/min) 2 Oxygen Delivery Method Nasal Cannula Weight: 105.8 kg Body Mass Index (BMI) 35.4 Intake and Output for Last 24 Hours 11/30/17 12/01/17 12/02/17 23:59 23:59 23:59 Intake Total 480 / 480 Output Total 1000 / 1000 Balance -520 / -520 Laboratory Results 12/01/17 22:00: Troponin I < 0.015 12/01/17 22:54: POC Glucose 242 H 12/02/17 00:10: Troponin I 0.016 12/02/17 06:13: WBC 5.9, RBC 3.42 L, Hgb 10.8 L, Hct 32.7 L, MCV 95.6 H, MCH 31.6, MCHC 33.0, RDW 15.3 H, RDW Differential 51.4 H, Plt Count 177, MPV 10.3, Immature Gran % (Auto) 0.500, Neut % (Auto) 67.0, Lymph % (Auto) 19.6, Churchill % (Auto) 7.8, Eos % (Auto) 4.6, Baso % (Auto) 0.5, Absolute Neuts (auto) 4.0, Absolute Lymphs (auto) 1.16, Total Counted Not Reportable 12/02/17 06:13: Sodium 143, Potassium 3.7, Chloride 105, Carbon Dioxide 28.0, Anion Gap 10, BUN 23 H, Creatinine 1.68 H, Estim Creat Clear Calc 41.85, Est GFR (MDRD) Af Amer 53 L, Est GFR (MDRD) Non-Af 44 L, BUN/Creatinine Ratio 13.7, Glucose 172 H, Calcium 8.7, Triglycerides 118, Cholesterol 86, LDL Cholesterol 37, VLDL Cholesterol 24, HDL Cholesterol 25 L, TSH 2.34 12/02/17 06:13: B-Natriuretic Peptide 296.9 H 12/02/17 06:48: POC Glucose 161 H 12/02/17 11:12: POC Glucose 302 H Current Medications Albuterol Sulfate (Ventolin Aerosols) 2.5 mg INHALATION Q6HWA.RT [facility] Last Admin: 12/02/17 13:03 Dose: 2.5 mg Aspirin (Aspirin, Baby) 81 mg PO QHS [facility] Last Admin: 12/01/17 23:07 Dose: 81 mg Atorvastatin Calcium (Lipitor) 80 mg PO QHS [facility] Last Admin: 12/01/17 23:07 Dose: 80 mg Carvedilol (Coreg) 3.125 mg PO BID [facility] Last Admin: 12/02/17 08:52 Dose: 3.125 mg Cholecalciferol (Vitamin D) 1,000 unit PO DAILY [facility] Last Admin: 12/02/17 08:53 Dose: 1,000 unit Clopidogrel Bisulfate (Plavix) 75 mg PO DAILY [facility] Last Admin: 12/02/17 08:53 Dose: 75 mg Dextrose (D50w Syringe) 0 gm IV X1 PRN; Protocol PRN Reason: Hypoglycemia Docusate Sodium (Colace Syrup) 50 mg PO BID [facility] Last Admin: 12/02/17 08:53 Dose: 50 mg Duloxetine HCl (Cymbalta) 60 mg PO DAILY [facility] Last Admin: 12/02/17 08:53 Dose: 60 mg Ferrous S[facility] ([facility]ous Sulfate) [facility] Last Admin: 12/02/17 08:51 Dose: 325 mg Furosemide (Lasix) 40 mg IV BIDLX [facility] Last Admin: 12/02/17 08:54 Dose: 40 mg Gabapentin (Neurontin) 600 [facility] Last Admin: 12/02/17 11:13 Dose: 600 mg Glucagon () 1 mg IM .X1 PRN PRN Reason: Hypoglycemia Insulin Glargine (Lantus (Bkc)) 55 units SC BID [facility] Last Admin: 12/02/17 08:54 Dose: 55 units Magnesium Oxide (Mag-Ox 400) 400 mg PO BID [facility] Last Admin: 12/02/17 08:52 Dose: 400 mg Multivitamins (Multivitamin) [facility] Last Admin: 12/02/17 08:51 Dose: 1 tablet Nitroglycerin (Nitrostat) 0.4 mg SUBLINGUAL Q5M PRN PRN Reason: Chest Pain Pantoprazole Sodium (Protonix) 40 mg PO BID [facility] Last Admin: 12/02/17 08:51 Dose: 40 mg Potassium Chloride (K-Dur) [facility] meq [facility] Last Admin: 12/02/17 08:54 Dose: 20 meq Sodium Chloride () 5 - 30 ml IV UD PRN PRN Reason: SALINE FLUSH Trazodone HCl (Desyrel) 50 mg PO QHS [facility] Last Admin: 12/01/17 23:07 Dose: 50 mg Medical Necessity - Tobacco Use Smoking Status: Former smoker Assessment/Plan All Active Problems (Last Reviewed 12/02/17 @ 05:09 by Baljinder Alexander MD) Chest pain (Acute) Acute diastolic heart failure (Acute) Hypoxemia (Acute) Abnormal pulmonary function test (Acute) Dyspnea (Acute) Anemia (Acute) Ventricular tachycardia (Acute) Bradycardia (Acute) Metabolic acidosis (Acute) Cardiogenic shock (Acute) Cardiac arrest (Acute) Hypokalemia (Acute) Hyponatremia (Acute) LIBRADO (acute kidney injury) (Acute) Uncontrolled type 2 DM with hyperosmolar nonketotic hyperglycemia (Acute) Acute on chronic renal failure (Resolved) Cellulitis of left leg (Resolved) Cellulitis of right leg (Resolved) Chest pain (Resolved) Hypotension (Resolved) 67 year old male chronic diastolic heart failure, CAD s/p stent and CABG, CKD III, and PAD admitted for acute on chronic diastolic heart failure. 1. Acute on chronic diastolic heart failure, secondary to dietary noncompliance, on IV Lasix, will continue to monitor on Lasix, strict I's and O's, daily weights, BMP in am 2. LIBRADO on CKD stage 3, improving, will continue to follow on Laisx 3. CAD s/p stents, CABG, aspirin, plavix, beta-james 4. Type 2 DM, BS are fairly uncontrolled, on insulin, will continue to monitor BS 5. LAURA on CPAP 6. PAD, on aspirin, statin, plavix 7. DVT ppx- Heparin SC Code Visit Inpatient E&M: 22011 Subs Hosp L2
[2017-12-02] MEDS: 0.9% NaCl Peripheral Flush Adult/Peds IV (17:04)
[2017-12-02 17:11] LABS: Bedside Glucose 265 mg/dL (70-110)
[2017-12-02] MEDS: traZODone 50 MG Tablet PO (21:13)
[2017-12-02] MEDS: Aspirin 81 MG TAB.CHEW PO (21:13)
[2017-12-02] MEDS: Atorvastatin Calcium 80 MG Tablet PO (21:13)
[2017-12-02] MEDS: Heparin Injection (Vial) 5,000 UNIT/ML VIAL 5000 UNIT SC (21:13)
[2017-12-02 22:05] LABS: Bedside Glucose 249 mg/dL (70-110)
[2017-12-03 03:13] VITALS: PULSE 68
[2017-12-03 03:20] VITALS: BP 94/56; PULSE 66; RESP 20; TEMP 36.6; O2SAT 94
[2017-12-03] MEDS: Heparin Injection (Vial) 5,000 UNIT/ML VIAL 5000 UNIT SC (05:06)
[2017-12-03 06:39] LABS: Anion Gap 9 (5-15); BUN 22 mg/dL (7-18); BUN/Creat Ratio 13.9 RATIO (10-20); Calcium,Total 8.9 mg/dL (8.5-10.1); Chloride 104 mmol/L (98-107); Creatinine, Serum 1.58 mg/dL (0.70-1.30); EST Glomerular Filtration Rate 47 mL/min (>60); Est Glom Filt Rate - Afr Amer 57 mL/min (>60); Estimated Creatinine Clearance 44.49 ml/min; Glucose 136 mg/dL (74-106); Potassium 3.9 mmol/L (3.5-5.1); Sodium Level 141 mmol/L (136-145)
[2017-12-03 07:01] LABS: Bedside Glucose 153 mg/dL (70-110)
[2017-12-03 07:04] VITALS: PULSE 68; RESP 16; O2SAT 95
[2017-12-03] MEDS: Albuterol 2.5 MG/3 ML VIAL.NEB. INHALATION (07:04)
[2017-12-03 07:09] VITALS: PULSE 67
[2017-12-03 09:14] VITALS: BP 97/54; PULSE 72; RESP 18; TEMP 36.8; O2SAT 95
[2017-12-03] MEDS: Gabapentin 600 MG Tablet PO (09:18)
[2017-12-03] MEDS: Clopidogrel Bisulfate 75 MG Tablet PO (09:18)
[2017-12-03] MEDS: Ferrous Sulfate 325 MG Tablet PO (09:18)
[2017-12-03] MEDS: Carvedilol 3.125 MG TABLET PO (09:18)
[2017-12-03] MEDS: Magnesium Oxide 400 MG Tablet PO (09:18)
[2017-12-03] MEDS: DULoxetine Hcl 60 MG Capsule PO (09:19)
[2017-12-03] MEDS: Multivitamins,Therapeutic Tablet 1 TABLET PO (09:19)
[2017-12-03] MEDS: Pantoprazole Sodium 40 MG Tablet PO (09:19)
[2017-12-03] MEDS: Furosemide 40 MG/4 ML Vial IV (09:20)
[2017-12-03 09:34] VITALS: RESP 18
--- NOTE | 2017-12-03 10:41 | PCM.DC ---
- Discharge Diagnoses Current Active Problems: Current Active and Chronic Problems (Last Reviewed 12/02/17 @ 05:09 by Baljinder Alexander MD) Acute diastolic heart failure (Acute) You will use the following diet at home:: Calorie/Carbohydrate Controlled (specify 1200, 1400, etc) - 1800, Fluid restricted (specify 2000 mls, 1500 mls) - 1500 Your food should be the consistency of: Regular Discharge Activity: Return to Normal Activity Instructions: ED Chest Pain NonCardiac Allergies/Adverse Reactions: Allergies lisinopril Allergy (Verified 12/01/17 22:43) Other COUGH Medications to take at Discharge Atorvastatin Calcium [Lipitor] 80 mg PO QHS 01/15/16 Cholecalciferol (VIT D3) [Vitamin D3] 1,000 unit PO DAILY 01/15/16 Magnesium Oxide 400 mg PO BID 01/15/16 Multivitamins,Therapeutic [Multivitamin] 1 tab PO DAILY 01/15/16 Insulin Glargine,Hum.rec.anlog [Lantus] 55 unit SQ BID 11/02/16 Nitroglycerin [Nitrostat] 0.4 mg SUBLINGUAL Q5M PRN 11/02/16 Duloxetine Hcl [Cymbalta] 60 mg PO DAILY cap 11/16/16 Carvedilol [Coreg (Beta Matthew)] 3.125 mg PO BID #60 tab 11/22/16 Pantoprazole Sodium [Protonix] 40 mg PO BID #60 tab 11/22/16 Gabapentin [Neurontin] 600 mg PO 4X/DAY 11/26/16 Clopidogrel Bisulfate [Plavix] 75 mg PO DAILY #30 tab 11/30/16 traZODone [Desyrel] 50 mg PO QHS #30 tab 11/30/16 Iron 65 mg PO BID 03/14/17 furosemide 40 mg tablet 40 mg PO BID tab 07/23/17 potassium chloride ER 20 mEq tablet,extended release(part/cryst) 20 meq PO BID tab 07/23/17 Aspirin [Aspirin, Baby] 81 mg PO QHS 10/13/17 Docusate Sodium [Stool Softener] 50 mg PO BID 10/13/17 albuterol sulfate HFA 90 mcg/actuation aerosol inhaler 2 puff INHALATION Q4H #1 inh 11/20/17 Insulin Lispro [Humalog] unit SQ ACHS 12/01/17 Primary Care Physician: Jelena Huddleston MD [Primary Care Provider] - Please follow up with your Primary Care Physician in: in 1-2 weeks Test Results: Test results from this visit will be discussed in further detail at your follow-up appointment, if applicable. Please Follow Up With: Mckinley Sanders MD When: in 2-4 weeks Proposed Discharge Date: 12/03/17
--- NOTE | 2017-12-03 10:45 | PCM.DC.SUM ---
Discharge Date and Diagnosis - Problem List Patient Problems: Active and Suspected Problems (Last Reviewed 12/02/17 @ 05:09 by Baljinder Alexander MD) Acute diastolic heart failure (Acute) Date of Admission: 12/01/17 Date of Discharge: 12/03/17 - Primary Discharge Diagnosis Active and Suspected Problems (Last Reviewed 12/02/17 @ 05:09 by Baljinder Alexander MD) Acute diastolic heart failure (Acute) - Secondary Discharge Diagnosis Chronic Problems (Last Reviewed 12/02/17 @ 05:09 by Baljinder Alexander MD) Chronic diastolic (congestive) heart failure (Chronic) History of coronary artery stent placement (Chronic ~11/02/16) [id number] RCA with 3.0 x 16 Promus 11/02/16 H/O coronary artery bypass surgery (Chronic ~2011) CABG x 2 FUENTES-LAD, SVG-OM 2011 Atherosclerosis of coronary artery of [place] heart without angina pectoris (Chronic) [id number] RCA with 3.0 x 16 Promus 11/02/16 CABG x 2 FUENTES-LAD, SVG-OM 2011 ZHAO (dyspnea on exertion) (Chronic) Chronic kidney disease (Chronic) PAOD (peripheral arterial occlusive disease) (Chronic) Venous insufficiency (Chronic) Depression (Chronic) Neuropathic pain (Chronic) Obstructive sleep apnea (Chronic) DM (diabetes mellitus), type 2, uncontrolled (Chronic) STEMI (ST elevation myocardial infarction) (Chronic) Diabetes mellitus (Chronic) Insulin-dependent Chronic kidney disease, stage 3 (Chronic) Diabetic nephropathy Iron deficiency anemia (Chronic) Anemia of chronic disease (Chronic) Hyperlipidemia (Chronic) Hypertension (Chronic) Open wound of knee, leg, and ankle, complicated (Chronic) Lymphedema (Chronic) Bilateral Venous insufficiency of both lower extremities (Chronic) Hospital Course and Treatment Imaging Results: Clinical Impression(s) from Imaging Studies Chest X-Ray 12/01/17 18:31 IMPRESSION: No acute findings Electronically Signed: James Hernandez DO at 19:07 EDT Tel , Service support , Chest X-Ray 12/02/17 18:16 IMPRESSION: Slightly increased bibasilar interstitial edema Electronically Signed: James Hernandez DO at 10:41 EDT Tel , Service support , Operations: None Summary of Care Provided: The patient is a 67 year old M multiple comorbidities including diabetes mellitus type 2, chronic diastolic congestive heart failure CAD with previous CABG and subsequent stent placement who presented with progressive shortness of breath and assessment of acute on chronic CHF made admitted to a monitored bed for further management 1. Acute on chronic diastolic CHF with known EF of 60% based on echo performed on October 2016. Patient CHF was prepped stated by his noncompliant to his dietary recommendations. He was placed on monitored bed managed with IV Lasix strict input and output with improvement in his condition. He was counseled on the need to be compliant. 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 Diabetes mellitus type 2 with complications including diabetic nephropathy did continue with patient home insulin regimen in addition to Accu-Cheks before meals and at bedtime with sliding scale coverage 3. Chronic kidney disease stage III secondary to diabetic nephropathy 4. Acute kidney injury secondary to hypoperfusion from his CHF did improve following this is a demonstration 5. Peripheral arterial disease patient is on dual antiplatelet therapy as well as started treatment 6. Dyslipidemia-patient is on statin therapy, continued at home dose 7. Coronary artery disease with history KATHY in November 2010, bypass surgery with FUENTES to LAD and SVG to obtuse marginal 1 in 2011, STEMI and cardiac arrest status post drug-eluting stent to RCA and angioplasty to proximal PDA in October 2016 8. DVT prophylaxis Heparin SC Discharge Diet: 1800 Calorie Control Diet, 8 Cup Fluid Restriciton, 2000 mg Sodium Diet Discharge Activity: Return to Normal Activity Home Medications: Medications to take at Discharge Atorvastatin Calcium [Lipitor] 80 mg PO QHS 01/15/16 Cholecalciferol (VIT D3) [Vitamin D3] 1,000 unit PO DAILY 01/15/16 Magnesium Oxide 400 mg PO BID 01/15/16 Multivitamins,Therapeutic [Multivitamin] 1 tab PO DAILY 01/15/16 Insulin Glargine,Hum.rec.anlog [Lantus] 55 unit SQ BID 11/02/16 Nitroglycerin [Nitrostat] 0.4 mg SUBLINGUAL Q5M PRN 11/02/16 Duloxetine Hcl [Cymbalta] 60 mg PO DAILY cap 11/16/16 Carvedilol [Coreg (Beta Matthew)] 3.125 mg PO BID #60 tab 11/22/16 Pantoprazole Sodium [Protonix] 40 mg PO BID #60 tab 11/22/16 Gabapentin [Neurontin] 600 mg PO 4X/DAY 11/26/16 Clopidogrel Bisulfate [Plavix] 75 mg PO DAILY #30 tab 11/30/16 traZODone [Desyrel] 50 mg PO QHS #30 tab 11/30/16 Iron 65 mg PO BID 03/14/17 furosemide 40 mg tablet 40 mg PO BID tab 07/23/17 potassium chloride ER 20 mEq tablet,extended release(part/cryst) 20 meq PO BID tab 07/23/17 Aspirin [Aspirin, Baby] 81 mg PO QHS 10/13/17 Docusate Sodium [Stool Softener] 50 mg PO BID 10/13/17 albuterol sulfate HFA 90 mcg/actuation aerosol inhaler 2 puff INHALATION Q4H #1 inh 11/20/17 Insulin Lispro [Humalog] unit SQ ACHS 12/01/17 Primary Care Physician: Jelena Huddleston MD [Primary Care Provider] - Please follow up with your Primary Care Physician in: in 1-2 weeks Please Follow Up With: Mckinley Sanders MD When: in 2-4 weeks Patient Instructions: ED Chest Pain NonCardiac Disposition: Home Minutes spent on discharge:: 35 Patient Condition:: Stable Medical Necessity - Tobacco Use Smoking Status: Former smoker Meaningful Use Info Meaningful Use Diagnoses (Choose all that apply): CHF - CHF ASHIA/ARB ordered at discharge?: Yes Reason ASHIA/ARB not ordered?: Worsening renal disease Documented LVEF (%): 60 Code Visit Inpatient E&M: 07140 Disch Hosp
[2017-12-03] MEDS: Acetaminophen 325 MG Tablet 650 MG PO (11:02)
--- NOTE | 2017-12-03 11:16 | CASEMGMT ---
Face to Face with patient for initial transition planning/care coordination assessment. CODI REYES introduced self and role at [facility], pt voices understanding and consents to assessment at this time. Pt is sitting up on side of bed in no distress at this time. Pt is A/O x4 at this time and answers all questions appropriately at this time. Care providers, pharmacy, and demographics verified. See attached link. Pt voices no further concerns/needs at this time. Advised pt to ask for CM if any further questions/concerns/needs arise, voices understanding. Conrado LONDONO provided AD paperwork to pt at this time. PLAN: [place] CODI REYES
--- NOTE | 2017-12-03 11:38 | CASEMGMT ---
CODI REYES told patient would like advance directives. Patient is being discharged. SPRING gave patient copies of the documents. SPRING also gave patient and his a copy of the information to call and schedule an appt with [facility] Dept to complete advance directives. Patient and his thanked SPRING. Carol VILLALTA MSW
[2017-12-03 11:41] LABS: Bedside Glucose 279 mg/dL (70-110)
--- NOTE | 2017-12-04 14:26 | CASEMGMT ---
RN CM DC PHONE CALL. Discharge Date: 12/03/17 LACE 4 Disposition: home Message left with call back information for CM. returned call, stated they did not have questions re: instructions, prescriptions or f/u. states pt is doing well. No suggestions given for care improvement. Brenda EASLEYN RN ACM
== END 2017-12-03 12:32 | disposition home or self-care (01) | DRG 291 ==
LOC: ED 19:22 → PCU 20:24
PROVIDERS: Internal Medicine; Admitting Provider Internal Medicine; Emergency Provider Emergency Medicine; Family Provider Family Medicine; PCP Family Medicine; Visit Provider Internal Medicine
DX: I13.0 Hypertensive heart and chronic kidney disease with heart failure and stage 1 through stage 4 chronic kidney disease, or unspecified chronic kidney disease (principal); I50.33 Acute on chronic diastolic (congestive) heart failure; E11.22 Type 2 diabetes mellitus with diabetic chronic kidney disease; N17.9 Acute kidney failure, unspecified; I25.10 Atherosclerotic heart disease of native coronary artery without angina pectoris; N18.3 Chronic kidney disease, stage 3 (moderate); G47.33 Obstructive sleep apnea (adult) (pediatric); E78.5 Hyperlipidemia, unspecified; Z79.4 Long term (current) use of insulin; Z95.5 Presence of coronary angioplasty implant and graft; Z95.1 Presence of aortocoronary bypass graft; Z87.891 Personal history of nicotine dependence; Z79.02 Long term (current) use of antithrombotics/antiplatelets; Z79.899 Other long term (current) drug therapy; Z79.82 Long term (current) use of aspirin; I25.2 Old myocardial infarction; E11.51 Type 2 diabetes mellitus with diabetic peripheral angiopathy without gangrene; E11.21 Type 2 diabetes mellitus with diabetic nephropathy; D63.8 Anemia in other chronic diseases classified elsewhere; E11.65 Type 2 diabetes mellitus with hyperglycemia; Z91.11 Patient's noncompliance with dietary regimen; F32.9 Major depressive disorder, single episode, unspecified
CPT/HCPCS: 36415; 71046; 80048; 80061; 82962; 83880; 84443; 84484; 85025; 93005; 93306; 94640; 96372; 96374; 96376; 97802; 99218; 99285; Q9957; A4216; C8929; G0378; J1940

== ENCOUNTER → 2018-02-06 14:08 | Outpatient (CLI) | payer MEDICARE, SELFPAY ==
[2018-02-06 15:52] LABS: Hemoglobin A1c 9.7 % (4.2-6.3)
[2018-02-06 16:01] LABS: AST(SGOT) 16 U/L (15-37); Alanine Aminotransfer ALT/SGPT 23 U/L (16-61); Albumin, Serum 3.4 g/dL (3.2-5.0); Alkaline Phosphatase 111 U/L (45-117); Anion Gap 10 (5-15); BUN 35 mg/dL (7-18); BUN/Creat Ratio 17.9 RATIO (10-20); Bilirubin, Direct 0.53 mg/dL (0.00-0.30); Calcium,Total 8.7 mg/dL (8.5-10.1); Chloride 100 mmol/L (98-107); Cholesterol 89 mg/dL (200); Creatinine, Serum 1.95 mg/dL (0.70-1.30); EST Glomerular Filtration Rate 37 mL/min (>60); Est Glom Filt Rate - Afr Amer 44 mL/min (>60); Globulin 4.3 g/dL (2.2-4.2); Glucose 263 mg/dL (74-106); High Density Lipoprotein 34 mg/dL; Potassium 4.1 mmol/L (3.5-5.1); Protein, Total 7.7 g/dL (6.4-8.2); Sodium Level 136 mmol/L (136-145); Triglycerides 86 mg/dL; Very Low Density Lipoprotein 17 mg/dL (5-40)
== END ==
PROVIDERS: Family Provider Family Medicine; PCP Family Medicine; Visit Provider Family Medicine
DX: E11.9 Type 2 diabetes mellitus without complications (principal); I50.9 Heart failure, unspecified
CPT/HCPCS: 36415; 80048; 80061; 80076; 83036

== ENCOUNTER → 2018-03-20 11:12 | Outpatient (CLI) | payer MEDICARE, SELFPAY ==
[2017-12-21 10:54] VITALS: BMI 34.7
--- NOTE | 2018-03-20 11:18 | RAD_ITS ---
STUDY: X-RAY CHEST REASON FOR EXAM: Male, 67 years old. TECHNIQUE: COMPARISON: December 02, 2017 FINDINGS: The lungs are clear and expanded. There is no demonstrated pleural abnormality. Normal size heart. Normal mediastinum and can. Normal visualized pulmonary arteries. Normal visualized aortic arch and descending thoracic aorta. Normal visualized thoracic spine. Normal visualized ribs, clavicles, and shoulders. There are multiple metallic stitches along the sternum from previous surgery. There is no demonstrated abnormality of the visualized soft tissue structures of the upper abdomen. RAD/Chest PA and Lateral IMPRESSION: Normal x-ray examination of the chest unchanged since December 02, 2017. Electronically Signed: Radha Viveros, at 16:27 EST Tel , Service support ,
== END ==
LOC: RAD 11:14
PROVIDERS: Family Provider Family Medicine; PCP Family Medicine; Referring Provider Family Medicine; Visit Provider Family Medicine
DX: R93.89 Abnormal findings on diagnostic imaging of other specified body structures (principal)
CPT/HCPCS: 71046